=== PATIENT | male | born 1950 | race Caucasian/White ===

== ENCOUNTER 2021-09-17 19:35 | Inpatient (IN) | payer MEDICARE, SELFPAY ==
--- NOTE | ~2021-09-17 | CT_ITS ---
EXAMINATION: CTA chest PE protocol DATE: 09/18/2021 10:18 INDICATION: Shortness of breath. TECHNIQUE: Computed tomography angiography (CTA) of the chest was performed with 100 mL Omnipaque-350 intravenous contrast timed to evaluate the pulmonary arteries. Coronal maximum intensity projection 3D-reconstructions were created by the technologist. Automated exposure control and iterative reconst ruction technique were employed. The dose-length product was 1205.02 mGy-cm. COMPARISON: None. FINDINGS: There is severe emphysema. There is mild atelectasis bilaterally. No pleural effusion. The heart size is normal. There are coronary artery calcifications. There are calcifications of the aorti c valve. No pericardial effusion. There is no pulmonary embolus. Partially visualized is a 10.[address] in left kidney. There are chronic radiopaque foreign bodies in the left posterior body wall. There are bridging endplate osteophytes at multiple levels in the spine, consistent with diffuse idiopathi c skeletal hyperostosis (DISH). There is severe cervical spondylosis and mild thoracic spondylosis. T here is a subcutaneous electronic implant in left anterior chest. IMPRESSION: 1. No pulmonary embolus. Sensitivity is moderately decreased by motion artifact. 2. Severe emphysema. Reviewed, dictated and finalized at location A. CLERK IMPRESSION: 1. No pulmonary embolus. Sensitivity is moderately decreased by motion artifact . 2. Severe emphysema.
--- NOTE | ~2021-09-17 | XR_ITS ---
EXAMINATION: XR abdomen/kub 1V EXAM DATE: 09/24/2021 09:31 INDICATION: Left upper quadrant pain. TECHNIQUE: Frontal projection of the upper abdomen, frontal projection lower abdomen/pelvis for inter pretation. There is no prior study for comparison. FINDINGS: Nonobstructive upper abdominal bowel gas pattern, only small amount of colonic gas present . [place] overlying the chest and abdomen. There are bony degenerative changes. IMPRESSION: Nonobstructive bowel gas pattern. Reviewed, dictated and finalized at location A. ITY BILL COLLECTION CLERK
--- NOTE | ~2021-09-17 | XR_ITS ---
XR chest 1V portable DATE: 09/18/2021 10:20 INDICATION: Shortness of breath TECHNIQUE: Portable AP views COMPARISON: 09/17/2021 AP chest FINDINGS: There is borderline or increased heart size. Is aortic calcification and mild unfolding. Mild atelectasis is suggested in the lower lungs. No pleural effusion or pneumothorax is noted. recreation therapy aides teacher device overlies the left chest. IMPRESSION: Mild atelectasis in the lower lung zones Reviewed, dictated and finalized at location A. AND PENCILS DIPPER
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
--- NOTE | ~2021-09-17 | CT_ITS ---
EXAMINATION: CT knee RT wo con DATE: 09/17/2021 22:01 INDICATION: Right knee pain and proximal tibial fracture post fall TECHNIQUE: High resolution computed tomography (CT) of the right knee was performed without intraveno us contrast. Additional sagittal and coronal reconstructions were performed. Automated exposure contr ol and iterative reconstruction technique were employed. The dose-length product was 420.83 mGy-cm. COMPARISON: Radiograph dated 09/17/2021 FINDINGS: Again seen is a comminuted fracture along the anterior aspect of the proximal tibia. Somewhat greater degree of comminution then anticipated based upon the plain radiographs. There is 3 mm anterior disp lacement of a fragment comprising a portion of the lateral aspect of the anterior tibial tuberosity. Negligible displacement of the remaining fragments. The fracture line does extend proximally to the a nterior margin of the lateral tibial plateau into the anterior aspect of the tibial footplate of the anterior cruciate ligament. There is however no evident involvement of the articular cortex. No other fractures identified. Thin peripheral serpiginous sclerotic margins to a chronic bone infarct in the distal diaphyseal and metaphyseal region of the right femur. Small right knee joint effusion without evident layering fat-fluid or hematocrit levels. Soft tissue swelling with subcutaneous edema anteri or to the patellar tendon and proximal tibia. IMPRESSION: 1. Nondisplaced minimally displaced comminuted fractures of the anterior aspect of the proximal tibia extending to the margin of the not involving the articular surface of the lateral tibial plateau. Reviewed, dictated and finalized at location A. IDENT AND CEO IMPRESSION: 1. Nondisplaced minimally displaced comminuted fractures of the anterior aspect of the proximal tibia extending to the margin of the not involving the articul ar surface of the lateral tibial plateau.
--- NOTE | ~2021-09-17 | XR_ITS ---
EXAMINATION: XR tibia fibula RT 2V DATE: 09/17/2021 20:15 INDICATION: Proximal anterior right lower leg pain post fall TECHNIQUE: AP and lateral views of the right lower leg were obtained on overlapping proximal and dist al images. COMPARISON: None. FINDINGS: Mildly comminuted fracture along the anterior aspect of the proximal right tibia with 2-3 mm wide chelly ency with Y-shaped configuration on the frontal projection and with 3 mm anterior displacement of a s mall fragment in the region of the anterior tibial tuberosity on the lateral projection. There is sug gestion of possible intra-articular extension with linear lucency extending to project over the media l intercondylar eminence on the frontal projection. There is mild soft tissue swelling anterior to th e proximal tibia and patellar tendon. Alignment is otherwise normal. No other fractures identified. J oint space at the right knee, ankle and visualized mid and hindfoot appear normal on nonweightbearing imaging. Small Achilles calcaneal spur. Small right knee joint effusion. IMPRESSION: 1. Minimally displaced, mildly comminuted at the anterior aspect of the proximal right tibia with pos sible intra-articular extension. Reviewed, dictated and finalized at location A. Y DUTY CUSTODIAN IMPRESSION: 1. Minimally displaced, mildly comminuted at the anterior aspect of the proxima l right tibia with possible intra-articular extension.
--- NOTE | ~2021-09-17 | XR_ITS ---
EXAMINATION: XR humerus RT, XR forearm RT 2V DATE: 09/23/2021 14:23 INDICATION: Right arm pain with limited range of motion post fall TECHNIQUE: 1. Overlapping proximal and distal AP and lateral views of the right humerus were obtained. 2. AP and lateral views of the right forearm were obtained. COMPARISON: None FINDINGS: Normal alignment at the right shoulder and elbow. There is widening of the scapholunate interval at t he right wrist with increased scapholunate angle consistent with scapholunate ligament tear and secon robbin dorsal intercalated segment instability (DISI). Atypical pattern of severe joint space narrowing at the radioscaphoid articulation which can be seen with scapholunate advanced collapse (SLAC) wrist suggesting the scapholunate ligament tear is chronic. No fractures. Additional polyarticular osteoar thritis, moderate severity at the right acromioclavicular joint and mild at the glenohumeral, elbow a nd first carpal metacarpal joints. Small loose osteochondral body at the olecranon fossa. No right el bow joint effusion. Tiny olecranon enthesophyte. Peripheral IV at the dorsal aspect of the distal for earm. IMPRESSION: 1. No fracture at the right upper arm or forearm. 2. 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 Reviewed, dictated and finalized at location A. OR SCRUM MASTER IMPRESSION: 1. No fracture at the right upper arm or forearm. 2. 

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
[2021-09-17 19:43] VITALS: BP 102/63; PULSE 119; RESP 18; TEMP 36.3; O2SAT 97
--- NOTE | 2021-09-17 22:00 | ED.LOWEXIN ---
HPI - Extremity Injury (Lower) General Chief Complaint: Extremity Injury, Lower Stated Complaint: Right leg Fx, cant ambulate Time Seen by Provider: 09/17/21 21:10 Source: patient Mode of arrival: wheelchair Limitations: no limitations History of Present Illness HPI Narrative: Patient is a 70-year-old male complaining of right knee pain, 8 out of 10, dull, aching, worse with palpation and movement after falling 3 days ago. Patient states that he was seen at [facility], was told to follow-up with Ortho, but when he called Ortho yesterday he was told that they did not accept his insurance, not part of the network . Son states that patient lives alone and he is not able to stand up and ambulate, unable to care for himself due to the injury. Related Data Allergies Allergy/AdvReac Type Severity Reaction Status Date / Time No Known Allergies Allergy Unverified 03/23/15 14:20 Review of Systems Review of Systems: All systems reviewed & are unremarkable except as noted in HPI and below Constitutional: Constitutional: Denies body ache(s), Denies chills, Denies excessive sweating, Denies fatigue, Denies fever(s), Denies headache(s), Denies lethargy, Denies malaise, Denies weakness and Denies weight loss Eyes: Eyes: Denies blurry vision, Denies change in vision and Denies loss of vision ENT: Denies dizziness, Denies ear discharge, Denies headache(s), Denies lip swelling, Denies epistaxis, Denies nasal congestion, Denies neck pain, Denies throat swelling and Denies tongue swelling Cardiovascular: Cardiovascular: Denies chest pain, Denies chest pain at rest, Denies chest pain with activity, Denies diaphoresis, Denies rapid heart rate, Denies edema, Denies irregular heart rhythm, Denies lightheadedness, Denies palpitations, Denies dyspnea and Denies dyspnea on exertion Respiratory: Respiratory: Denies chest congestion, Denies cough, Denies hemoptysis, Denies dyspnea and Denies dyspnea on exertion Gastrointestinal: Gastrointestinal: Denies abdominal pain, Denies melena, Denies hematochezia, Denies diarrhea, Denies nausea, Denies vomiting and Denies hematemesis Musculoskeletal: Musculoskeletal: Denies neck pain and Denies numbness Neurologic: Denies Abnormal speech present, Denies abnormal gait, Denies confusion, Denies dizziness, Denies headache(s), Denies focal weakness, Denies loss of vision, Denies numbness, Denies Other visual disturbances, Denies Sensory deficit (Neuro) and Denies weakness Psychiatric: Psychiatric: Denies confusion, Denies depression, Denies auditory hallucinations, Denies homicidal ideation and Denies suicidal ideation Endocrine: Endocrine: Denies cold intolerance, Denies excessive sweating, Denies fatigue, Denies heat intolerance and Denies palpitations Hematologic/Lymphatic: Hematologic/Lymphatic: Denies easy bleeding and Denies easy bruising Allergic/Immunologic: Allergic/Immunologic: Denies lip swelling, Denies throat swelling and Denies tongue swelling PMFSH Comments Past medical history: COPD, hypertension Family history: Hypertension Social history: Former smoker, no EtOH use, lives at home alone Exam Const: General: no acute distress and alert Nutritional Appearance: obese Orientation/consciousness: patient oriented x3 Limitations: no limitations HENMT: Head: normal to inspection, normocephalic and atraumatic Ears: hearing grossly normal bilaterally, TM normal on the right and TM normal on the left General nose exam: Normal external nose present, Normal nares present and No nasal discharge present Face and sinus: normal facial exam Mouth: Yes Normal oral and palatal mucosa present, Yes lip normal, Yes tongue normal and Yes oropharynx normal Throat: posterior oropharynx normal, tonsils normal and uvula midline Eyes: General: appearance normal, both eyes and all related structures Pupils: Equal, round and reactive pupils present EOM: EOMs intact bilaterally Neck: Neck: normal visual inspection, full R
[2021-09-17 22:17] LABS: Basophils Percent Auto 0.3 % (0.2-1.2); Eosinophils Absolute Auto 0.1 K/mm3 (0-0.3); Eosinophils Percent Auto 0.5 % (0-4.4); Hematocrit 40.5 % (42.0-52.0); Immature Granulocyte Absolute 0.06 K/mm3 (0.00-0.031); Immature Granulocyte Percent A 0.5 % (0-0.5); Lymphocytes Absolute Auto 0.95 K/mm3 (0.9-3.2); Lymphocytes Percent Auto 7.2 % (18.3-44.2); Mean Corpuscular HGB Conc 32.1 g/dl (32-36); Mean Corpuscular Hemoglobin 30.1 pg (26-34); Mean Corpuscular Volume 93.8 fl (80-100); Mean Platelet Volume 9.2 fl (7.4-10.4); Monocytes Percent Auto 7.8 % (2.6-8.5); Neutrophils Absolute Auto 11.1 K/mm3 (1.3-6.7); Neutrophils Percent Auto 83.7 % (45.5-73.1); Platelet Count Result 292 k/mm3 (150-375); Red Blood Count 4.32 M/mm3 (4.6-6.20); Red Cell Distribution Width 13.2 % (11.5-14.5); White Blood Count 13.3 K/mm3 (4.5-10.0)
[2021-09-17 22:27] LABS: Partial Thromboplastin Time 30.2 SECONDS (22.3-36.8)
[2021-09-17 22:29] LABS: Anion Gap 8 mmol/L (8-16); Blood Urea Nitrogen 13 mg/dL (9-20); Calcium 9.1 mg/dL (8.4-10.2); Carbon Dioxide 33 mmol/L (22-30); Chloride 98 mmol/L (98-107); Estimated CRCL calculation 124 ml/min; Estimated Glomerular Filt Rate > 60; Glucose 126 mg/dL (65-110); Potassium 4.2 mmol/L (3.4-5.0); Sodium 139 mmol/L (137-145)
[2021-09-17 22:30] LABS: INR 0.9; Prothrombin Time 12.3 Seconds (11.1-14.7)
--- NOTE | 2021-09-17 23:25 | ECG_ITS ---
Measurements Intervals [place] Rate: 121 P: -74 [place]: 156 QRS: -72 QRSD: 118 T: 67 QT: 310 QTc: 441 Interpretive Statements SINUS OR ECTOPICA ATRIAL TACHYCARDIA WITH FIRST DEGREE AV BLOCK INCOMPLETE RIGHT BUNDLE BRANCH BLOCK LEFT ANTERIOR FASCICULAR BLOCK BORDERLINE ST-T WAVE ABNORMALITY- HIGH LATERAL LEADS BASELINE ARTIFACT- I, II, AVR, AVL, AVF, V1-V6 ABNORMAL ECG Electronically Signed On 09-18-2021 6:22:34 COMMUNITY SERVICE ORGANIZATION DIRECTOR by Jae Harp D.O.
[2021-09-18] VITALS (21 sets, daily range): BP systolic 132–151; BP diastolic 77–102; PULSE 71–112; RESP 17–22; TEMP 36.3–36.9; O2SAT 86–98; BMI 40.9
[2021-09-18] MEDS: HYDROcodone/acetaminophen (*CRX) 7.5-325 MG TABLET 1 TAB PO (00:07)
[2021-09-18] MEDS: LACTATED RINGERS 1,000 ML 125 ML IV CONT (02:00)
--- NOTE | 2021-09-18 03:39 | PC.NURSE ---
This patient, Bjorn Malave, was admitted to [facility] Surg Room 300-01. Patient/family oriented to hospital policies and general routines including ID bracelet, bed and alarms, visiting hours, pain management, procedures, bathroom and other care routines, personal items, smoking policy, room service/diet, and visiting hours. Information on how to activate the Rapid Response Team has been discussed. Patient/Family are encouraged to report perceived risks to care and to ask questions if they do not understand what they are told or what they should do.
--- NOTE | 2021-09-18 07:12 | PM.CNOR ---
Assessment and Plan Additional Plan Patient has a comminuted but minimally displaced fracture of the tibial tubercle right proximal tibia without extension into the weight-bearing articular surfaces of the knee. Since it is nondisplaced or minimally displaced the extensor mechanism is intact and this should heal without surgical intervention but will require nonweightbearing for a minimum of 6 weeks. He is at risk for DVT and Eliquis will be started. He may eat as surgery is not planned for this gentleman. History of Present Illness HPI Consult date: 09/18/21 Chief complaint: Tibial Plateau Fracture, COPD [facility] Social History Social History Smoking packs per day: 3 Smoking cigarettes per day: 60.0 Years smoked: 20 Smoking pack-years: 60.00 Smoking status: Former smoker Tobacco type: cigarettes Second hand tobacco smoke exposure: Yes Alcohol intake: current Drinks per week: 2 Substance use: never Substance use type: does not use Spiritual care concerns: No Meds Home Medications and Allergies Home Medications Medication Instructions Recorded Confirmed Type albuterol sulfate 2 puff INHALATION Q6-8H PRN 09/18/21 09/18/21 History amlodipine 10 mg PO DAILY 09/18/21 09/18/21 History aspirin 81 mg PO DAILY 09/18/21 09/18/21 History atorvastatin 80 mg PO HS 09/18/21 09/18/21 History tzrxmwiotpl-yftfpxbca-mkfelony 100 inh INHALATION Q6-8H 09/18/21 09/18/21 History [Trelegy Ellipta] furosemide 40 mg PO DAILY 09/18/21 09/18/21 History hydrocodone-acetaminophen 5 - 325 tablet PO Q6-8H 09/18/21 09/18/21 History ipratropium-albuterol 3 ml INHALATION Q6H PRN 09/18/21 09/18/21 History levothyroxine 150 mcg PO DAILY 09/18/21 09/18/21 History meloxicam 15 mg PO DAILY 09/18/21 09/18/21 History montelukast 10 mg PO HS 09/18/21 09/18/21 History nitroglycerin 0.4 mg SUBLINGUAL PRN PRN MDD 3 09/18/21 09/18/21 History potassium chloride 20 meq PO DAILY 09/18/21 09/18/21 History sertraline 50 mg PO DAILY 09/18/21 09/18/21 History tamsulosin 0.4 mg PO DAILY 09/18/21 09/18/21 History Allergies Allergy/AdvReac Type Severity Reaction Status Date / Time No Known Allergies Allergy Verified 09/18/21 00:03 Vital Signs Vital Signs - 24 hr 09/17/21 19:43 09/18/21 00:10 09/18/21 01:15 Temperature 36.3 C L 36.9 C Pulse Rate 119 H 112 H 111 H Respiratory Rate 18 18 22 H Blood Pressure 102/63 135/80 132/102 H Pulse Oximetry 97 94 97 09/18/21 03:48 09/18/21 06:00 Temperature 36.3 C L Pulse Rate 98 Respiratory Rate 20 Blood Pressure 151/78 H Pulse Oximetry 97 98 Results Labs Result Diagrams: 09/17/21 22:11 09/17/21 22:11 Labs: Abnormal lab results 09/17/21 09/17/21 Range/Units 22:11 22:11 WBC 13.3 H (4.5-10.0) K/mm3 RBC 4.32 L (4.6-6.20) M/mm3 Hgb 13.0 L (14.0-18.0) g/dL Hct 40.5 L (42.0-52.0) % Neut % (Auto) 83.7 H (45.5-73.1) % Lymph % (Auto) 7.2 L (18.3-44.2) % [place] # (Auto) 1.0 H (0.1-0.6) K/mm3 Abs Immat Gran (auto) 0.06 H (0.00-0.031) K/mm3 Absolute Neuts (auto) 11.1 H (1.3-6.7) K/mm3 Carbon Dioxide 33 H (22-30) mmol/L Glucose 126 H (65-110) mg/dL H & H 09/17/21 Range/Units 22:11 Hgb 13.0 L (14.0-18.0) g/dL Hct 40.5 L (42.0-52.0) % Coagulation 09/17/21 Range/Units 22:11 INR 0.9 All other labs normal.
--- NOTE | 2021-09-18 08:20 | PM.IMHP ---
H&P: HPI History of Present Illness Date/Time: 09/18/21819 Chief Complaint: Leg fracture with limited movement Narrative: Patient is a 70 year old male with a past medical history of COPD, HTN, HLD, and BPH that presented to the ED fro evaluation of right leg pain and immobility. Patient explained that he fell 3 days ago. He was seen at [facility] which x-ray showed that he had a fracture and was told to follow up with orthopedics as an outpatient. When he tried to see an orthopedic provider, he was told that his insurance was not accepted, and they were unable to see him. He presented yesterday due to pain and inability to be mobile. Patient lives by himself, and concern comes in that the patient would not be able to care for himself. This morning I went to see the patient the patient was diaphoretic extremely short of breath with wheezes. Patient denied chest pain. Patient stated that he would drink some juice and get very short of breath. His work of breathing was elevated and he was diaphoretic. Patient stated that the diaphoresis is normal for him especially when he moves around. He also becomes very short of breath and usually takes a nitro to relieve his shortness of breath. Patient did state that he noticed increasing wheezes and has been more short of breath lately than normal. He denies sputum changes at that time. However when I re-evaluated the patient in the afternoon patient stated that he is having more sputum production and that is changing from yellow to green. Patient has been more weak and fatigued over the last couple days. He also states that he has had no urinary dysfunction. He denies nausea, vomiting, fevers, chills, falls, syncope, chest pain. He did state that he is hungry and would like to eat. Upon examination this morning, patient was noted to be in respiratory failure with hypoxia and hypercapnia. Patient was placed on bipap and transferred to the IMU. Review of Systems Review of Systems: All systems reviewed & are unremarkable except as noted in HPI and below PMFSH Past Medical History Medical History (Updated 09/18/21 @ 15:58 by ZIYAD Belcher) BPH (benign prostatic hyperplasia) CAD (coronary artery disease) CHF (congestive heart failure) COPD (chronic obstructive pulmonary disease) Depression Hyperlipidemia Hypertension Hypothyroidism Surgical History Surgical History (Updated 09/18/21 @ 15:50 by ZIYAD Belcher) H/O colonoscopy with polypectomy Stented coronary artery Family History Family History (Updated 09/18/21 @ 15:50 by ZIYAD Belcher) Mother Heart disease Hypertension Father Hypertension Heart disease Social History Social History (Updated 09/18/21 @ 15:52 by ZIYAD Belcher) Social History: [place] [facility]. Patient has no pets and his about 8 years ago. Patient would like to be a full code and his surrogate be either Vinay or Katrin. Patient had 4 kids 3boys and 1 girl. 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
[2021-09-18] MEDS: ALBUTEROL SULFATE NEB 2.5 MG/0.5 ML INH INHALATION ×3 (08:30→20:50)
[2021-09-18] MEDS: IPRATROPIUM BR 0.02% INH SOLN 0.5 MG/2.5 ML VIAL INHALATION ×3 (08:30→20:50)
[2021-09-18] MEDS: NITROGLYCERIN SL 0.4 MG TABLET SUBLINGUAL (08:33)
--- NOTE | 2021-09-18 08:37 | ECG_ITS ---
Measurements Intervals [place] Rate: 106 P: [place]: 0 QRS: -63 QRSD: 117 T: 76 QT: 339 QTc: 452 Interpretive Statements SINUS TACHYCARDIA FREQUENT VENTRICULAR PREMATURE COMPLEXES LEFT AXIS DEVIATION INCOMPLETE RIGHT BUNDLE BRANCH BLOCK BORDERLINE R WAVE PROGRESSION, ANTERIOR LEADS BORDERLINE ST-T WAVE ABNORMALITY- HIGH LATERAL LEADS BASELINE WANDER- I, II, III, AVR, AVL, AVF, V3-V6 ABNORMAL ECG Electronically Signed On 09-18-2021 9:16:58 HUMANITIES INSTRUCTOR by Jae Harp D.O.
[2021-09-18 08:51] LABS: INR 0.9; Prothrombin Time 12.4 Seconds (11.1-14.7)
[2021-09-18 08:52] LABS: Partial Thromboplastin Time 29.9 SECONDS (22.3-36.8)
[2021-09-18 08:55] LABS: D Dimer 2.07 ug/mL (<0.48); Lactic Acid Reflex 1.2 mmol/L (0.7-2.1)
[2021-09-18 09:07] LABS: Troponin I < 0.012 ng/mL (0.000-0.034)
[2021-09-18 09:10] LABS: Alveolar/Arterial O2 Gradient 95.9 mmHg; Base Excess ABG 9.4 mEq/l (+/-2.0); Fractional Inspired Oxygen 36 %; Oxygen Content ABG 16.3 %vol (16.0-22.0); Oxygen Saturation ABG 89.4 % (95.0-100.0); Oxyhemoglobin 91.4 % THb (90.0-100.0); PO2 ABG 65.2 mmHg (80.0-100.0); PO2 FiO2 Ratio Arterial Blood 1.81 %; Total Hemoglobin 12.7 g/dL (12.0-18.0)
[2021-09-18 09:12] LABS: pH ABG 7.293 (7.350-7.450)
[2021-09-18 09:13] LABS: Device NASAL CANNULA; Modified Allen's Test Pass; PCO2 ABG 82.4 mmHg (35.0-45.0); Site Drawn LEFT RADIAL
[2021-09-18] MEDS: MELOXICAM 7.5 MG TABLET 15 MG PO (10:25)
[2021-09-18] MEDS: TAMSULOSIN HCL 0.4 MG CAPSULE PO (10:25)
[2021-09-18] MEDS: SERTRALINE HCL 50 MG TABLET PO (10:26)
[2021-09-18] MEDS: LEVOTHYROXINE SODIUM 150 MCG TABLET PO (10:26)
[2021-09-18] MEDS: FUROSEMIDE 40 MG TABLET PO (10:26)
[2021-09-18] MEDS: amLODIPine BESYLATE 5 MG TABLET 10 MG PO (10:26)
[2021-09-18] MEDS: ASPIRIN 81 MG CHEWABLE TABLET PO (10:26)
--- NOTE | 2021-09-18 13:10 | PC.NURSE ---
This patient, Bjorn Malave, was transferred to IMU [id number] on 09/18/21 at 1310. Personal belongings sent with patient. Report given to Roro ROMERO. Appropriate documentation sent with patient.
--- NOTE | 2021-09-18 13:45 | PC.NURSE ---
This patient, Bjorn Malave, was received from [ [id number]] on 09/18/21 at 1310. Patient/family oriented to unit policies and routines Report received from NICK Brandon.
[2021-09-18 14:10] LABS: Alveolar/Arterial O2 Gradient 162.6 mmHg; Base Excess ABG 6.5 mEq/l (+/-2.0); Carboxyhemoglobin 0.1 % THb (0-2.0); Fractional Inspired Oxygen 44 %; HCO3 ABG 34.4 mEq/l (22.0-26.0); Methemoglobin ABG 0.4 %THb (0-1.5); Oxygen Content ABG 16.3 %vol (16.0-22.0); Oxygen Saturation ABG 93.4 % (95.0-100.0); Oxyhemoglobin 93.9 % THb (90.0-100.0); PO2 ABG 74.4 mmHg (80.0-100.0); PO2 FiO2 Ratio Arterial Blood 1.69 %; Reduced Hemoglobin 5.6 %THb (0-5.0); Total Hemoglobin 12.3 g/dL (12.0-18.0); pH ABG 7.327 (7.350-7.450)
[2021-09-18 14:13] LABS: PCO2 ABG 67.3 mmHg (35.0-45.0)
[2021-09-18 14:14] LABS: Device HIGH FLOW NASAL CANN; Modified Allen's Test Pass; Site Drawn LEFT RADIAL
[2021-09-18 14:34] LABS: Add Urine Microscopic? NO; Appearance Urine Clear (Clear); Bilirubin Urine Negative (Negative); Blood Urine Negative (Negative); Color Urine Yellow (Yellow); Glucose Urine UA Negative (Negative); Ketones Urine Negative (Negative); Leukocyte Esterase Ur Negative LEU/UL (Negative); Nitrate Urine Negative (Negative); Protein Urine Negative (Negative); Urobilinogen Urine Negative mg/dL (<2.0)
[2021-09-18 14:36] LABS: Specific Grav Ur 1.045 (1.001-1.035)
[2021-09-18] MEDS: methylPREDNISolone SOD SUCC 125 MG VIAL 60 MG IV PUSH ×2 (18:01→21:05)
--- NOTE | 2021-09-18 19:25 | PM.CNOR ---
Assessment and Plan Additional Plan Patient is a 70-year-old gentleman that was admitted last evening with a comminuted right tibial tubercle fracture. This happened from a fall directly onto the front of his right knee 5 days ago. He was initially seen in outside hospital and attempt to treat him on outpatient basis was made but he came into the ER having too much difficulty living at home without assistance. He has extreme obesity his BMI is 41 and he is oxygen dependent at home. His a history of coronary artery disease and CHF he has a very difficult time getting up from a chair with just his left leg strength alone. Earlier today he was short of breath and hypoxic and hypercapnic had a CT angiogram of the chest which fortunately showed no pulmonary embolism. I did start him on Eliquis 2.5 mg twice daily this morning I would recommend he have a 6 week course of this. He does have some infiltrates on his chest x-ray and is being evaluated for pneumonia as well. He has severe emphysema COPD. On exam today he has a fair amount of bruising over the anteromedial aspect of the lower leg proximal aspect of the calf anteromedially. The skin is otherwise intact. He has no obvious edema in his foot or ankle he moves his ankle up and down without discomfort he has full extension of his knee without discomfort. He has severe tenderness over the tibial tubercle. He has a knee immobilizer the could be a little bit longer for him. I will have Applied Biology Professor fit him with a long-leg hinged knee brace that can be locked in extension which will give him more support. I could not feel a dorsalis pedis pulse but he had normal color and warmth in the foot. Rotation legged not cause discomfort. All of his pain is in the tibial tubercle area. He is being evaluated for placement at [facility]. Will check a 25 hydroxy vitamin-D level and supplement this if it is low. Impression comminuted fracture tibial tubercle right leg without evidence of displacement and therefore he should not have disruption of the extensor mechanism and his function should be normal again once he has complete healing will take about 8 weeks. I explained him that if he is noncompliant and uses quadriceps either to do a straight leg raise or to push up with his leg to get up from a sitting position or climb a step he may pull off the tibial tubercle which would result in extensor mechanism disruption and incompetence which would necessitate surgical reattachment of the tubercle to the tibia. History of Present Illness HPI Consult date: 09/18/21 Chief complaint: Tibial Plateau Fracture, COPD [facility] Past Medical History Medical History (Updated 09/18/21 @ 15:58 by ZIYAD Belcher) BPH (benign prostatic hyperplasia) CAD (coronary artery disease) CHF (congestive heart failure) COPD (chronic obstructive pulmonary disease) Depression Hyperlipidemia Hypertension Hypothyroidism Surgical History Surgical History (Updated 09/18/21 @ 15:50 by ZIYAD Belcher) H/O colonoscopy with polypectomy Stented coronary artery Family History Family History (Updated 09/18/21 @ 15:50 by ZIYAD Belcher) Mother Heart disease Hypertension Father Hypertension Heart disease Social History Social History (Updated 09/18/21 @ 15:52 by ZIYAD Belcher) Social History: Patient [place] [facility]. Patient has no pets and his about 8 years ago. Patient would like to be a full code and his surrogate be either Vinay or Katrin. Patient had 4 kids 3boys and 1 girl. Smoking packs per day: 3 Smoking cigarettes per day: 60.0 Years smoked: 20 Smoking pack-years: 60.00 Smoking status: Former smoker Tobacco type: cigarettes Second hand tobacco smoke exposure: Yes Alcohol intake: former Drinks per week: 2 Substance use: never Substance use type: does not use Living arrangements: alone Occupation/Educatio
[2021-09-18] MEDS: ATORVASTATIN 40 MG TABLET 80 MG PO (20:29)
[2021-09-18] MEDS: MONTELUKAST SODIUM 10 MG TABLET PO (20:29)
[2021-09-18] MEDS: FLUTICASONE/UMECLIDIN/VILANTER 100-62.5-25 MCG ELLIPTA 1 PUFF INHALATION (21:02)
[2021-09-18 21:08] LABS: Vitamin D 25 Hydroxy < 12.8 ng/mL
[2021-09-19] VITALS (35 sets, daily range): BP systolic 132–159; BP diastolic 73–91; PULSE 72–116; RESP 18–24; TEMP 36.3–36.9; O2SAT 91–98
--- NOTE | 2021-09-19 | ECHO_ITS ---
Patient Info Name: Bjorn Malave Age: 70 years : 1950 Gender: Male Ht: 71 in Wt: 293 lbs BSA: 2.64 m2 HR: 68 bpm BP: 148 / 91 mmHg Heart Rhythm: Sinus Rhythm Technical Quality: Fair Exam Date: 09/19/2021 1:14 PM Exam Location: [facility] Pulmonary Exam Room: [facility] [place] Patient Status: Inpatient Admit Date: 09/18/2021 Staff Ordering Physician: Filemon Amaral Medical Radiation Therapist: Sally Miller RDCS Attending Provider: Mckenzie Cuevas DO Referring Physician: Munir TURNER; Exam Type: CA echo doppler color flow Study Info Indications - shortness of breath Complete two-dimensional, color flow and Doppler transthoracic echocardiogram is performed. Summary 1. Complete two-dimensional, color flow and Doppler transthoracic echocardiogram is performed. 2. Left ventricular chamber dimension is normal. 3. Left ventricular systolic function is normal, estimated at 65-70%. 4. There is mildly increased left ventricular wall thickness. 5. The left ventricular diastolic function is grade I diastolic dysfunction. 6. Left atrial chamber dimension is mildly enlarged. 7. Right atrial chamber dimension is mildly enlarged. 8. There is mild aortic valve calcification. 9. There is moderate aortic valve sclerosis. 10. There is mild tricuspid valve regurgitation. 11. Mild pulmonary hypertension, estimated pulmonary arterial systolic pressure is 41 mmHg. Left Ventricle Left ventricular chamber dimension is normal. Left ventricular systolic function is normal, estimated at 65-70%. There is mildly increased left ventricular wall thickness. The left ventricular diastolic function is grade I diastolic dysfunction. Right Ventricle Right ventricular chamber dimension is normal. Right ventricular systolic function is normal. Left Atria Left atrial chamber dimension is mildly enlarged. Right Atria Right atrial chamber dimension is mildly enlarged. Atrial Septum Intact interatrial septum visualized by color flow imaging. Aortic Valve The aortic valve is trileaflet. There is moderate aortic valve sclerosis. There is trace aortic valve regurgitation. There is mild aortic valve calcification. Pulmonic Valve The pulmonic valve is normal. There is no pulmonic valve stenosis. There is trace pulmonic regurgitation. Mitral Valve The mitral valve has calcified annulus. There is no mitral valve stenosis. There is trace mitral valve regurgitation. Tricuspid Valve The tricuspid valve leaflets are normal. There is no significant tricuspid valve stenosis. There is mild tricuspid valve regurgitation. Mild pulmonary hypertension, estimated pulmonary arterial systolic pressure is 41 mmHg. Pericardium/Pleural The pericardium appears normal. There is no pericardial effusion. Inferior Vena Cava Normal inferior vena cava with >50% collapse upon inspiration consistent with normal right atrial pressure, 10 mmHg. Aorta The aortic root size at the sinus of Valsalva is normal. There is mild aortic atherosclerosis. Left Ventricular Outflow Tract Name Value Normal LVOT 2D LVOT Diameter 2.2 cm LVOT Doppler
[2021-09-19] MEDS: IPRATROPIUM BR 0.02% INH SOLN 0.5 MG/2.5 ML VIAL INHALATION ×6 (00:08→20:00)
[2021-09-19] MEDS: ALBUTEROL SULFATE NEB 2.5 MG/0.5 ML INH INHALATION ×6 (00:08→20:00)
[2021-09-19 04:43] LABS: Alveolar/Arterial O2 Gradient 92.6 mmHg; Base Excess ABG 9.9 mEq/l (+/-2.0); Fractional Inspired Oxygen 35 %; HCO3 ABG 37.4 mEq/l (22.0-26.0); Oxygen Content ABG 17.3 %vol (16.0-22.0); Oxygen Saturation ABG 95.5 % (95.0-100.0); Oxyhemoglobin 95.3 % THb (90.0-100.0); PO2 FiO2 Ratio Arterial Blood 2.34 %; Total Hemoglobin 12.9 g/dL (12.0-18.0); pH ABG 7.381 (7.350-7.450)
[2021-09-19 04:46] LABS: Device NON-INVASIVE VENT; Modified Allen's Test Pass; PCO2 ABG 64.5 mmHg (35.0-45.0); Site Drawn RIGHT RADIAL
[2021-09-19 04:47] LABS: Non-Invasive Expiratory Pressure 7 CMH2O; Non-Invasive Vent Rate 16 /MIN
[2021-09-19 04:55] LABS: Basophils Percent Auto 0.3 % (0.2-1.2); Hematocrit 36.6 % (42.0-52.0); Hemoglobin 12.1 g/dL (14.0-18.0); Immature Granulocyte Absolute 0.04 K/mm3 (0.00-0.031); Immature Granulocyte Percent A 0.6 % (0-0.5); Lymphocytes Absolute Auto 0.37 K/mm3 (0.9-3.2); Lymphocytes Percent Auto 5.3 % (18.3-44.2); Mean Corpuscular HGB Conc 33.1 g/dl (32-36); Mean Corpuscular Hemoglobin 30.1 pg (26-34); Mean Platelet Volume 9.1 fl (7.4-10.4); Monocytes Absolute Auto 0.1 K/mm3 (0.1-0.6); Monocytes Percent Auto 0.7 % (2.6-8.5); Neutrophils Absolute Auto 6.6 K/mm3 (1.3-6.7); Neutrophils Percent Auto 93.1 % (45.5-73.1); Platelet Count Result 322 k/mm3 (150-375); Red Blood Count 4.02 M/mm3 (4.6-6.20); Red Cell Distribution Width 12.9 % (11.5-14.5)
--- NOTE | 2021-09-19 05:00 | ECG_ITS ---
Measurements Intervals [place] Rate: 89 P: 88 MA: 209 QRS: -73 QRSD: 130 T: 81 QT: 383 QTc: 467 Interpretive Statements SINUS RHYTHM WITH FIRST DEGREE AV BLOCK LEFT ANTERIOR FASCICULAR BLOCK BASELINE ARTIFACT- I, AVL, V2 ABNORMAL ECG Electronically Signed On 09-19-2021 9:44:35 [employer] QU[employer] CONTROL QC by Jae Harp D.O.
[2021-09-19 05:15] LABS: Alanine Aminotransferase 13 U/L (4-50); Albumin Level 3.7 g/dL (3.5-5.1); Alkaline Phosphatase 72 U/L (38-126); Aspartate Amino Transferase 17 U/L (17-59); Bilirubin,Total 0.8 mg/dL (0.2-1.3); Blood Urea Nitrogen 18 mg/dL (9-20); Calcium 9.4 mg/dL (8.4-10.2); Carbon Dioxide > 40 mmol/L (22-30); Chloride 96 mmol/L (98-107); Estimated CRCL calculation 139 ml/min; Estimated Glomerular Filt Rate > 60; Glucose 156 mg/dL (65-110); Magnesium 2.1 mg/dL (1.6-2.3); NT Pro B Type Natriuretic Pept 176 pg/mL (5-100); Potassium 4.7 mmol/L (3.4-5.0); Sodium 140 mmol/L (137-145)
[2021-09-19] MEDS: LEVOTHYROXINE SODIUM 150 MCG TABLET PO (05:34)
[2021-09-19] MEDS: methylPREDNISolone SOD SUCC 125 MG VIAL 60 MG IV PUSH (05:36)
--- NOTE | 2021-09-19 07:52 | PM.PNORT ---
Progress Note: A&P Additional Plan Patient today is alert. He had a bout of shortness of breath yesterday was evaluated with CT to rule out pulmonary embolus which was negative. Immobilizer is on him. Pain overall is well controlled. They are working on senior care placement. Reviewing his orders patient was started on Lovenox this morning and Dr. Clancy would prefer for patient to be on Eliquis for DVT prophylaxis. We will restart this at this point. He will need to be on Eliquis for 6 weeks while the fracture is healing. We will continue to follow while he is here in the hospital. Subjective Subjective Date/Time Seen: 09/19/21 07:52 Objective Data Vital Signs Vital Signs: Vital Signs - 24 hr 09/18/21 08:00 09/18/21 08:20 09/18/21 08:35 Temperature Pulse Rate Respiratory Rate Blood Pressure Pulse Oximetry 86 L 90 92 09/18/21 08:55 09/18/21 09:10 09/18/21 12:00 Temperature Pulse Rate 98 99 71 Respiratory Rate 22 H 22 H Blood Pressure Pulse Oximetry 09/18/21 14:00 09/18/21 14:02 09/18/21 16:00 Temperature 36.4 C L Pulse Rate 100 86 Respiratory Rate 22 H 22 H Blood Pressure 146/77 H Pulse Oximetry 91 09/18/21 18:00 09/18/21 20:00 09/18/21 20:54 Temperature 36.4 C Pulse Rate 96 73 84 Respiratory Rate 20 20 Blood Pressure 139/81 Pulse Oximetry 93 09/18/21 20:55 09/18/21 21:03 09/18/21 22:00 Temperature Pulse Rate 82 93 Respiratory Rate 17 20 Blood Pressure Pulse Oximetry 95 09/18/21 23:15 09/18/21 23:55 09/19/21 00:00 Temperature 36.6 C Pulse Rate 91 90 Respiratory Rate 20 Blood Pressure 151/89 H Pulse Oximetry 94 94 09/19/21 00:07 09/19/21 00:08 09/19/21 00:14 Temperature Pulse Rate 86 84 Respiratory Rate 20 20 20 Blood Pressure Pulse Oximetry 93 09/19/21 01:53 09/19/21 03:30 09/19/21 04:00 Temperature 36.8 C Pulse Rate 77 72 75 Respiratory Rate 18 Blood Pressure 148/91 H Pulse Oximetry 96 96 09/19/21 04:38 09/19/21 04:48 09/19/21 06:00 Temperature Pulse Rate 84 82 87 Respiratory Rate 20 20 Blood Pressure Pulse Oximetry 09/19/21 07:07 09/19/21 07:41 Temperature 36.6 C 36.9 C Pulse Rate 90 80 Respiratory Rate 22 H 20 Blood Pressure 152/76 H 132/73 Pulse Oximetry 97 97 Intake/Output Intake/Output: Intake & Output 09/16/21 09/17/21 09/18/21 09/19/21 23:59 23:59 23:59 23:59 Intake Total 860 Output Total 1150 600 Balance -290 -600 Meds/Results Medications: Active Medications Generic Name Dose Route Start Last Admin Trade Name Freq PRN Reason Stop Dose Admin Acetaminophen 1,000 mg 09/18/21 07:54 Acetaminophen 500 Mg Tablet PO Q6H PRN Mild Pain (1-3) or Fever Hydrocodone Bitart/Acetaminophen 1 tab 09/18/21 07:54 Hydrocodone/Acetaminophen (*Crx) 5-325 Mg Tablet PO Q6H PRN Pain Rated 4-6 Albuterol 2.5 mg 09/18/21 20:00 09/19/21 04:27 Albuterol Sulfate Neb 2.5 Mg/0.5 Ml Inh INHALATION 2.5 mg Q4HRT WILLY Administration Amlodipine Besylate 10 mg 09/18/21 09:00 09/18/21 10:26 Amlodipine Besylate 5 Mg Tablet PO 10 mg DAILY WILLY Administration Aspirin 81 mg 09/18/21 08:00 09/18/21 10:26 Aspirin 81 Mg Chewable Tablet PO 81 mg DAILY@0800 WILLY Administration Atorvastatin Calcium 80 mg 09/18/21 21:00 09/18/21 20:29 Atorvastatin 40 Mg Tablet PO 80 mg HS WILLY Administration Enoxaparin Sodium 40 mg 09/19/21 09:00 Enoxaparin 40 Mg/0.4 Ml Syringe SUB-Q DAILY WILLY Fluticasone/Umeclidinium/Vilanterol 1 puff 09/18/21 08:00 09/18/21 21:02 Fluticasone/Umeclidin/Vilanter 100-62.5-25 Mcg Ellipta INHALATION 1 puff Q12HRT WILLY Administration Furosemide 40 mg 09/18/21 09:00 09/18/21 10:26 Furosemide 40 Mg Tablet PO 40 mg DAILY WILLY Administration Hydromorphone HCl 0.5 mg 09/17/21 23:25 Hydromorphone Hcl Inj (*Crx) 1 Mg/Ml Syr IV PUSH Q4H PRN Pain R
--- NOTE | 2021-09-19 08:40 | PM.IMPN ---
Progress Note: A&P Assessment and Plan (1) COPD exacerbation: Code(s): J44.1 - Chronic obstructive pulmonary disease with (acute) exacerbation Status: Acute Assessment and Plan: Increase wheezes and Shortness of breath Could be an acute exacerbation, wonder if this is PNA Chronic oxygen use of 3LNC Continue home Trelegy Ellipta, singular 10mg Neb treatments PRN for shortness of breath Steroids converted 40mg PO daily Azithromycin and ceftriaxone Chest CTA severe emphysema Pulmonary consult IS Sputum culture ordered (2) Acute on chronic respiratory failure with hypoxia and hypercapnia: Code(s): J96.21 - Acute and chronic respiratory failure with hypoxia; J96.22 - Acute and chronic respiratory failure with hypercapnia Status: Acute Assessment and Plan: Chronic O2 use of 3L at home ABG finding respiratory acidosis with PaCO2 82.4 and PaO2 65.2, pH 7.293 09/18/21 Bipap 14/8 rate of 20 Dimer elevated at 2.07 Chest CTA shows no PE Pulm consult thank you for your help decrease lovenox to 40mg (3) Closed fracture of tibial plateau: Qualifiers: Encounter type: initial encounter Laterality: right Qualified Code(s): S82.141A - Displaced bicondylar fracture of right tibia, initial encounter for closed fracture Code(s): S82.143A - Displaced bicondylar fracture of unspecified tibia, initial encounter for closed fracture Status: Acute Assessment and Plan: Knee CT: nondisplaced minimally displaced comminuted fractures of the anterior aspect of the proximal tibia Ortho consulted thank you for your help Knee immobilizer non weight bearing status for 6 weeks PT/OT Eliquis for DVT Dilaudid 0.5mg IV Q4hr PRN, add Tylenol and [place] Zofran for nausea vomiting (4) Pneumonia: Code(s): J18.9 - Pneumonia, unspecified organism Status: Acute Assessment and Plan: Chest xray: Opacities at the lateral left lower lung zone most likely atelectasis and/or prominent left paracardial fat pad with differential also including pneumonia or small left pleural effusion. WBC 7.0 Chronic home oxygen use Azithromycin and ceftriaxone started neb treatments IS Blood culture NGTD Sputum culture pending Legionella (5) Hypertension: Qualifiers: Hypertension type: unspecified Qualified Code(s): I10 - Essential (primary) hypertension Code(s): I10 - Essential (primary) hypertension Status: Acute Assessment and Plan: Current BP is 149/77 Could be high due to pain Continue home amlodipine 10mg PO daily Trend BP adjust medications as needed (6) Hypothyroidism: Code(s): E03.9 - Hypothyroidism, unspecified Status: Acute Assessment and Plan: Continue home levothyroxine Check TSH (7) Hyperlipidemia: Code(s): E78.5 - Hyperlipidemia, unspecified Status: Acute Assessment and Plan: Continue home atorvastatin (8) Constipation: Code(s): K59.00 - Constipation, unspecified Status: Acute Assessment and Plan: Distended Denies BM since last Thursday Miralax added Time Spent With Patient Time with patient: Greater than 35 minutes Subjective Date/time seen: 09/19/21839 Interval history: Date/Time: 09/18/21819 Chief Complaint: Leg fracture with limited movement Narrative: Patient is a 70 year old male with a past medical history of COPD, HTN, HLD, and BPH that presented to the ED fro evaluation of right leg pain and immobility. Patient explained that he fell 3 days ago. He was seen at [facility] which x-ray showed that he had a fracture and was told to follow up with orthopedics as an outpatient. When he tried to see an orthopedic provider, he was told that his insurance was not accepted, and they were unable to see him. He presented yesterday due to pain and inab
--- NOTE | 2021-09-19 08:40 | P.PNIM_ITS ---
Progress Note: A&P Assessment and Plan (1) COPD exacerbation: Code(s): J44.1 - Chronic obstructive pulmonary disease with (acute) exacerbation Status: Acute Assessment and Plan: * Increase wheezes and Shortness of breath * Could be an acute exacerbation, wonder if this is PNA * Chronic oxygen use of 3LNC * Continue home Trelegy Ellipta, singular 10mg * Neb treatments PRN for shortness of breath * Steroids converted 40mg PO daily * Azithromycin and ceftriaxone * Chest CTA severe emphysema * Pulmonary consult * IS * Sputum culture ordered (2) Acute on chronic respiratory failure with hypoxia and hypercapnia: Code(s): J96.21 - Acute and chronic respiratory failure with hypoxia; J96.22 - Acute and chronic respiratory failure with hypercapnia Status: Acute Assessment and Plan: * Chronic O2 use of 3L at home * ABG finding respiratory acidosis with PaCO2 82.4 and PaO2 65.2, pH 7.293 09/18/21 * Bipap / rate of 20 * Dimer elevated at 2.07 * Chest CTA shows no PE * Pulm consult thank you for your help * decrease lovenox to 40mg (3) Closed fracture of tibial plateau: Qualifiers: Encounter type: initial encounter Laterality: right Qualified Code(s): S82.141A - Displaced bicondylar fracture of right tibia, initial encounter for closed fracture Code(s): S82.143A - Displaced bicondylar fracture of unspecified tibia, initial encounter for closed fracture Status: Acute Assessment and Plan: * Knee CT: nondisplaced minimally displaced comminuted fractures of the anterior aspect of the proximal tibia * Ortho consulted thank you for your help * Knee immobilizer * non weight bearing status for 6 weeks * PT/OT * Eliquis for DVT * Dilaudid 0.5mg IV Q4hr PRN, add Tylenol and [place] * Zofran for nausea vomiting (4) Pneumonia: Code(s): J18.9 - Pneumonia, unspecified organism Status: Acute Assessment and Plan: * Chest xray: Opacities at the lateral left lower lung zone most likely atelectasis and/or prominent left paracardial fat pad with differential also including pneumonia or small left pleural effusion. * WBC 7.0 * Chronic home oxygen use * Azithromycin and ceftriaxone started * neb treatments * IS * Blood culture NGTD * Sputum culture pending * Legionella (5) Hypertension: Qualifiers: Hypertension type: unspecified Qualified Code(s): I10 - Essential (primary) hypertension Code(s): I10 - Essential (primary) hypertension Status: Acute Assessment and Plan: * Current BP is 149/77 * Could be high due to pain * Continue home amlodipine 10mg PO daily * Trend BP * adjust medications as needed (6) Hypothyroidism: Code(s): E03.9 - Hypothyroidism, unspecified Status: Acute Assessment and Plan: * Continue home levothyroxine * Check TSH (7) Hyperlipidemia: Code(s): E78.5 - Hyperlipidemia, unspecified Status: Acute Assessment and Plan: * Continue home atorvastatin (8) Constipation: Code(s): K59.00 - Constipation, unspecified Status: Acute Assessment and Plan: * Distended * Denies BM since last Thursday * Miralax added Time Spent With Patient Time with patient: Greater than 35 minutes Subjective Date/time seen: 09/19/21 0840 Interval history
[2021-09-19] MEDS: ASPIRIN 81 MG CHEWABLE TABLET PO (08:50)
[2021-09-19] MEDS: HYDROcodone/acetaminophen (*CRX) 5-325 MG TABLET 1 TAB PO (08:50)
[2021-09-19] MEDS: amLODIPine BESYLATE 5 MG TABLET 10 MG PO (08:51)
[2021-09-19] MEDS: SERTRALINE HCL 50 MG TABLET PO (08:51)
[2021-09-19] MEDS: TAMSULOSIN HCL 0.4 MG CAPSULE PO (08:51)
[2021-09-19] MEDS: MELOXICAM 7.5 MG TABLET 15 MG PO (08:51)
[2021-09-19] MEDS: FUROSEMIDE 40 MG TABLET PO (08:51)
[2021-09-19] MEDS: ENOXAPARIN 40 MG/0.4 ML SYRINGE SUB-Q (08:52)
[2021-09-19] MEDS: predniSONE 20 MG TABLET 40 MG PO (09:26)
--- NOTE | 2021-09-19 11:01 | PM.CNPUL ---
Assessment and Plan Assessment and plan (1) COPD exacerbation: Code(s): J44.1 - Chronic obstructive pulmonary disease with (acute) exacerbation Status: Acute Assessment and Plan: Patient with COPD as evidenced by his apical predominant centrilobular emphysema along with his tobacco use. Patient is on 3 L oxygen at home with rest and ambulation. Patient had increased phlegm production and shortness of breath with wheezing on 09/18 and was started on Solu-Medrol, ipratropium and albuterol nebulizers as well as ceftriaxone and azithromycin for possible pneumonia. 09/19 Patient states that he is doing much better today and he feels that he is back to normal. He still does have cough with phlegm production. I will change his Solu-Medrol to prednisone 40 mg p.o. q.day and continue his albuterol 2.5 nebs and ipratropium 0.5 nebs at q.4 hours today. I will continue ceftriaxone and azithromycin pending his blood cultures. Of note there are no focal infiltrates on his CT angiogram of the chest. Once cultures are negative at 48 hours I will deescalate. Currently saturations are 96% on 5 L nasal cannula and we will tighter FiO2 to maintain a goal saturation 90-92%. (2) Acute on chronic respiratory failure with hypoxia and hypercapnia: Code(s): J96.21 - Acute and chronic respiratory failure with hypoxia; J96.22 - Acute and chronic respiratory failure with hypercapnia Status: Acute Assessment and Plan: regarding patient's chronic respiratory failure he has a diagnosis of both COPD and obstructive sleep apnea. Patient tells me that approximately 5 years ago he was started on nasal prong CPAP but his doctors told this and this was not a runoff respiratory support and he was changed to a full face mask. Patient did try to wear full face mask but he could not tolerate this as there was leak and was very uncomfortable for him. Patient was placed back on his nasal prongs on room air but uses the machine in consistently. Interestingly the patient did wear full face mask last night with noninvasive ventilation of a VATS mode and he said he felt well for him. Patient has COPD with chronic hypercarbic respiratory failure with a serum bicarbonate of 33 on admission and a blood gas of 7.29/82/65. Patient would benefit from a noninvasive ventilation and currently had difficulty with the BiPAP settings but last night slept with a and a VATS mode and said that this was comfortable for him and he could tolerate that. AVAPS mode rate of 16, tidal volume 550, expiratory pressure 7, inspiratory minimum pressure 8, inspiratory maximum pressure 25, inspiratory time 1, rise 3 which is our middle and 35% FiO2. patient had a blood gas at the end of the night on these settings which was 7.38/65/82. I will increase his backup rate to 20 And repeat a blood gas in the morning on these settings. Will perform an overnight oximetry on 32% to his says his oxygenation. We will initiate the process of getting him a noninvasive ventilator given his chronic hypercarbic respiratory failure from COPD. Will follow with you History of Present Illness History of Present Illness Consult date: 09/19/21 Reason for consult: COPD Chief complaint: Tibial Plateau Fracture, COPD Narrative: 70-year-old man with a history of tobacco use and COPD on 3 L oxygen at rest and with ambulation, obstructive sleep apnea on CPAP with room air, hypertension, hyperlipidemia, benign prostatic hypertrophy who presented to our emergency room 3 days after a fall. Patient tells me that he was at home in his usual state of condition but ran out of oxygen. He fell in his driveway and hurt his right knee. He went to an outside hospital with a tibial fracture and was referred to orthopedic surgery. On 09/17 patient had worsening leg pain and was immobile and presented to our emergency department. He was admitted and seen by orthopedic surgery who stated he did not need any
[2021-09-19] MEDS: HYDROmorphone HCL INJ (*CRX) 1 MG/ML SYR 0.5 MG IV PUSH (12:18)
--- NOTE | 2021-09-19 14:41 | PC.NURSE ---
On 09/19/21, the student, [Roma Haney], provided care and completed [facility] documentation on this patient. I have reviewed the student's documentation and agree with the findings.
[2021-09-19] MEDS: polyethylene glycoL 3350 17 GM POWD.PACK PO (16:43)
[2021-09-19] MEDS: ATORVASTATIN 40 MG TABLET 80 MG PO (20:14)
[2021-09-19] MEDS: APIXABAN 2.5 MG TABLET PO (20:14)
[2021-09-19] MEDS: MONTELUKAST SODIUM 10 MG TABLET PO (20:14)
[2021-09-19] MEDS: FLUTICASONE/UMECLIDIN/VILANTER 100-62.5-25 MCG ELLIPTA 1 PUFF INHALATION (20:41)
[2021-09-20] VITALS (20 sets, daily range): BP systolic 131–152; BP diastolic 84–105; PULSE 63–117; RESP 18–24; TEMP 36.4–37; O2SAT 92–99
--- NOTE | 2021-09-20 00:46 | PCRCNOTE ---
Patient did not get 0000 treatment due to being on an apnea link.
[2021-09-20 04:17] LABS: Legionella pneumophila Ag Ur Not Detected (Not Detected)
[2021-09-20 04:58] LABS: Alveolar/Arterial O2 Gradient 78.8 mmHg; Base Excess ABG 10.4 mEq/l (+/-2.0); Fractional Inspired Oxygen 35 %; HCO3 ABG 38.2 mEq/l (22.0-26.0); Oxygen Content ABG 17.1 %vol (16.0-22.0); Oxygen Saturation ABG 96.7 % (95.0-100.0); Oxyhemoglobin 95.7 % THb (90.0-100.0); PO2 FiO2 Ratio Arterial Blood 2.66 %; Total Hemoglobin 12.6 g/dL (12.0-18.0); pH ABG 7.374 (7.350-7.450)
[2021-09-20 05:01] LABS: Device NON-INVASIVE VENT; Modified Allen's Test Pass; Non-Invasive Vent Rate 16 /MIN; PCO2 ABG 66.9 mmHg (35.0-45.0); Site Drawn RIGHT RADIAL
[2021-09-20 05:02] LABS: Non-Invasive Expiratory Pressure 7 CMH2O
--- NOTE | 2021-09-20 06:03 | PCRCNOTE ---
Pt's 0400 tx omitted due to apnea link. Will resume tx's at 0800.
[2021-09-20 06:23] LABS: Basophils Percent Auto 0.3 % (0.2-1.2); Hematocrit 33.9 % (42.0-52.0); Hemoglobin 11.2 g/dL (14.0-18.0); Immature Granulocyte Absolute 0.05 K/mm3 (0.00-0.031); Immature Granulocyte Percent A 0.5 % (0-0.5); Lymphocytes Absolute Auto 0.94 K/mm3 (0.9-3.2); Lymphocytes Percent Auto 8.8 % (18.3-44.2); Mean Corpuscular Hemoglobin 30.5 pg (26-34); Mean Corpuscular Volume 92.4 fl (80-100); Monocytes Absolute Auto 0.9 K/mm3 (0.1-0.6); Monocytes Percent Auto 8.1 % (2.6-8.5); Neutrophils Absolute Auto 8.8 K/mm3 (1.3-6.7); Neutrophils Percent Auto 82.3 % (45.5-73.1); Platelet Count Result 309 k/mm3 (150-375); Red Blood Count 3.67 M/mm3 (4.6-6.20); White Blood Count 10.7 K/mm3 (4.5-10.0)
[2021-09-20] MEDS: LEVOTHYROXINE SODIUM 150 MCG TABLET PO (06:28)
[2021-09-20 06:32] LABS: Alanine Aminotransferase 13 U/L (4-50); Albumin Level 3.5 g/dL (3.5-5.1); Alkaline Phosphatase 59 U/L (38-126); Aspartate Amino Transferase 18 U/L (17-59); Bilirubin,Total 0.5 mg/dL (0.2-1.3); Blood Urea Nitrogen 25 mg/dL (9-20); Calcium 9.2 mg/dL (8.4-10.2); Carbon Dioxide > 40 mmol/L (22-30); Chloride 96 mmol/L (98-107); Estimated CRCL calculation 107 ml/min; Estimated Glomerular Filt Rate > 60; Glucose 118 mg/dL (65-110); Magnesium 2.1 mg/dL (1.6-2.3); Potassium 4.4 mmol/L (3.4-5.0); Sodium 137 mmol/L (137-145)
[2021-09-20] MEDS: IPRATROPIUM BR 0.02% INH SOLN 0.5 MG/2.5 ML VIAL INHALATION ×4 (08:01→20:40)
[2021-09-20] MEDS: ALBUTEROL SULFATE NEB 2.5 MG/0.5 ML INH INHALATION (08:01)
[2021-09-20] MEDS: FLUTICASONE/UMECLIDIN/VILANTER 100-62.5-25 MCG ELLIPTA 1 PUFF INHALATION (08:02)
[2021-09-20] MEDS: FUROSEMIDE 40 MG TABLET PO (08:30)
[2021-09-20] MEDS: APIXABAN 2.5 MG TABLET PO ×2 (08:30→20:16)
[2021-09-20] MEDS: ASPIRIN 81 MG CHEWABLE TABLET PO (08:30)
[2021-09-20] MEDS: predniSONE 20 MG TABLET 40 MG PO (08:30)
[2021-09-20] MEDS: amLODIPine BESYLATE 5 MG TABLET 10 MG PO (08:30)
[2021-09-20] MEDS: SERTRALINE HCL 50 MG TABLET PO (08:31)
[2021-09-20] MEDS: MELOXICAM 7.5 MG TABLET 15 MG PO (08:31)
[2021-09-20] MEDS: TAMSULOSIN HCL 0.4 MG CAPSULE PO (08:31)
[2021-09-20] MEDS: polyethylene glycoL 3350 17 GM POWD.PACK PO (08:36)
--- NOTE | 2021-09-20 09:07 | PM.PNPUL ---
Progress Note: A&P Assessment and Plan (1) COPD exacerbation: Code(s): J44.1 - Chronic obstructive pulmonary disease with (acute) exacerbation Status: Acute Assessment and Plan: Patient with COPD as evidenced by his apical predominant centrilobular emphysema along with his tobacco use. Patient is on 3 L oxygen at home with rest and ambulation. Patient had increased phlegm production and shortness of breath with wheezing on 09/18 and was started on Solu-Medrol, ipratropium and albuterol nebulizers as well as ceftriaxone and azithromycin for possible pneumonia. 09/19 Patient states that he is doing much better today and he feels that he is back to normal. He still does have cough with phlegm production. I will change his Solu-Medrol to prednisone 40 mg p.o. q.day and continue his albuterol 2.5 nebs and ipratropium 0.5 nebs at q.4 hours today. I will continue ceftriaxone and azithromycin pending his blood cultures. Of note there are no focal infiltrates on his CT angiogram of the chest. Once cultures are negative at 48 hours I will deescalate. Currently saturations are 96% on 5 L nasal cannula and we will tighter FiO2 to maintain a goal saturation 90-92%. 09/20 Currently the patient states he is breathing normal now he has no wheezes and his phlegm has resolved. Currently is on 3 L nasal cannula with saturations 97%. I will discontinue his nebulizers today and continue his trilogy inhaler. I will discontinue ceftriaxone and finish a 5 day course of azithromycin IV if in hospital. From a pulmonary perspective patient is suitable for discharge on these pulmonary medications: Prednisone 40 mg PO Q day for 5 days total (last dose 09/22) Azithromycin 250 mg PO Q day for 5 days total (last dose 09/22) Trelegy 100/62.5/25 at 1 puff q.day Rescue albuterol 2 puffs q.4 hours p.r.n. shortness of breath or wheezing Montelukast 10 mg PO Q day Oxygen at 3 L NC when awake When sleeps: noninvasive ventilation with AVAPS-AE mode with a rate of 20, tidal volume 550, minimal expiratory pressure 5, maximal expiratory pressure 15, minimal inspiratory pressure 5, maximal inspiratory pressure 25, inspiratory time 1.0 second, rise 3 which is are middle setting and 4 L bleed in. we have initiated these orders through his DME, [facility] [employer] today. If noninvasive ventilator with AVAPS-AE mode not available at a rehab center then he should be discharged on BiPAP with rate 20, Inspiratory pressure 16, expiratory pressure 10, 4 L bleed in. Follow up with his culinary worker, Dr. Dominguez Krishnamurthy in 3-4 weeks with a download from his noninvasive ventilator. Discussed with Filemon Amaral, Pulmonary in patient services will resume on 09/23. (2) Acute on chronic respiratory failure with hypoxia and hypercapnia: Code(s): J96.21 - Acute and chronic respiratory failure with hypoxia; J96.22 - Acute and chronic respiratory failure with hypercapnia Status: Acute Assessment and Plan: 09/19 regarding patient's chronic respiratory failure he has a diagnosis of both COPD and obstructive sleep apnea. Patient tells me that approximately 5 years ago he was started on nasal prong CPAP but his doctors told this and this was not a runoff respiratory support and he was changed to a full face mask. Patient did try to wear full face mask but he could not tolerate this as there was leak and was very uncomfortable for him. Patient was placed back on his nasal prongs on room air but uses the machine in consistently. Interestingly the patient did wear full face mask last night with noninvasive ventilation of a VATS mode and he said he felt well for him. Patient has COPD with chronic hypercarbic respiratory failure with a serum bicarbonate of 33 on admission and a blood gas of 7.29/82/65. Patient would benefit from a noninvasive ventilation to prevent further deterioration and prevent further hospitalizations. Currently had difficulty with the BiPAP settin
--- NOTE | 2021-09-20 11:00 | PM.IMPN ---
Progress Note: A&P Assessment and Plan (1) COPD exacerbation: Code(s): J44.1 - Chronic obstructive pulmonary disease with (acute) exacerbation Status: Acute Assessment and Plan: Increase wheezes and Shortness of breath Could be an acute exacerbation, wonder if this is PNA Chronic oxygen use of 3LNC Continue home Trelegy Ellipta, singular 10mg Neb treatments PRN for shortness of breath Steroids converted 40mg PO daily Azithromycin day 3 Chest CTA severe emphysema Pulmonary consult IS Sputum culture ordered Need to go home on trilogy (2) Acute on chronic respiratory failure with hypoxia and hypercapnia: Code(s): J96.21 - Acute and chronic respiratory failure with hypoxia; J96.22 - Acute and chronic respiratory failure with hypercapnia Status: Acute Assessment and Plan: Chronic O2 use of 3L at home ABG finding respiratory acidosis with PaCO2 82.4 and PaO2 65.2, pH 7.293 09/18/21 Bipap 16/10 rate of 20, will need trilogy when getting home, bipap ok for placement Dimer elevated at 2.07 Chest CTA shows no PE Pulm consult thank you for your help decrease lovenox to 40mg, changed to eliquis (3) Closed fracture of tibial plateau: Qualifiers: Encounter type: initial encounter Laterality: right Qualified Code(s): S82.141A - Displaced bicondylar fracture of right tibia, initial encounter for closed fracture Code(s): S82.143A - Displaced bicondylar fracture of unspecified tibia, initial encounter for closed fracture Status: Acute Assessment and Plan: Knee CT: nondisplaced minimally displaced comminuted fractures of the anterior aspect of the proximal tibia Ortho consulted thank you for your help Knee immobilizer non weight bearing status for 6 weeks PT/OT Eliquis for DVT Dilaudid 0.5mg IV Q4hr PRN, add Tylenol and [place] Zofran for nausea vomiting (4) Hypertension: Qualifiers: Hypertension type: unspecified Qualified Code(s): I10 - Essential (primary) hypertension Code(s): I10 - Essential (primary) hypertension Status: Acute Assessment and Plan: Current BP is 134/85 Could be high due to pain Continue home amlodipine 10mg PO daily Trend BP adjust medications as needed (5) Hypothyroidism: Code(s): E03.9 - Hypothyroidism, unspecified Status: Acute Assessment and Plan: Continue home levothyroxine Check TSH (6) Hyperlipidemia: Code(s): E78.5 - Hyperlipidemia, unspecified Status: Acute Assessment and Plan: Continue home atorvastatin (7) Discharge planning issues: Code(s): Z02.9 - Encounter for administrative examinations, unspecified Status: Acute Assessment and Plan: Patient having a hard time being placed due to trilogy needs Pulmonary high patient to go on BiPAP Care coordination to continue to follow Will need Auth Time Spent With Patient Time with patient: Greater than 35 minutes Subjective Date/time seen: 09/20/21 11:00 Interval history: Date/Time: 09/18/21819 Chief Complaint: Leg fracture with limited movement Narrative: Patient is a 70 year old male with a past medical history of COPD, HTN, HLD, and BPH that presented to the ED fro evaluation of right leg pain and immobility. Patient explained that he fell 3 days ago. He was seen at [facility] which x-ray showed that he had a fracture and was told to follow up with orthopedics as an outpatient. When he tried to see an orthopedic provider, he was told that his insurance was not accepted, and they were unable to see him. He presented yesterday due to pain and inability to be mobile. Patient lives by himself, and concern comes in that the patient would not be able to care for himself. This morning I went to see the patient the patient was diaphoretic extremely short of breath with wheezes. Patient denied chest
--- NOTE | 2021-09-20 11:00 | P.PNIM_ITS ---
Progress Note: A&P Assessment and Plan (1) COPD exacerbation: Code(s): J44.1 - Chronic obstructive pulmonary disease with (acute) exacerbation Status: Acute Assessment and Plan: * Increase wheezes and Shortness of breath * Could be an acute exacerbation, wonder if this is PNA * Chronic oxygen use of 3LNC * Continue home Trelegy Ellipta, singular 10mg * Neb treatments PRN for shortness of breath * Steroids converted 40mg PO daily * Azithromycin day 3 * Chest CTA severe emphysema * Pulmonary consult * IS * Sputum culture ordered * Need to go home on trilogy (2) Acute on chronic respiratory failure with hypoxia and hypercapnia: Code(s): J96.21 - Acute and chronic respiratory failure with hypoxia; J96.22 - Acute and chronic respiratory failure with hypercapnia Status: Acute Assessment and Plan: * Chronic O2 use of 3L at home * ABG finding respiratory acidosis with PaCO2 82.4 and PaO2 65.2, pH 7.293 09/18/21 * Bipap 16/10 rate of 20, will need trilogy when getting home, bipap ok for placement * Dimer elevated at 2.07 * Chest CTA shows no PE * Pulm consult thank you for your help * decrease lovenox to 40mg, changed to eliquis (3) Closed fracture of tibial plateau: Qualifiers: Encounter type: initial encounter Laterality: right Qualified Code(s): S82.141A - Displaced bicondylar fracture of right tibia, initial encounter for closed fracture Code(s): S82.143A - Displaced bicondylar fracture of unspecified tibia, initial encounter for closed fracture Status: Acute Assessment and Plan: * Knee CT: nondisplaced minimally displaced comminuted fractures of the anterior aspect of the proximal tibia * Ortho consulted thank you for your help * Knee immobilizer * non weight bearing status for 6 weeks * PT/OT * Eliquis for DVT * Dilaudid 0.5mg IV Q4hr PRN, add Tylenol and [place] * Zofran for nausea vomiting (4) Hypertension: Qualifiers: Hypertension type: unspecified Qualified Code(s): I10 - Essential (primary) hypertension Code(s): I10 - Essential (primary) hypertension Status: Acute Assessment and Plan: * Current BP is 134/85 * Could be high due to pain * Continue home amlodipine 10mg PO daily * Trend BP * adjust medications as needed (5) Hypothyroidism: Code(s): E03.9 - Hypothyroidism, unspecified Status: Acute Assessment and Plan: * Continue home levothyroxine * Check TSH (6) Hyperlipidemia: Code(s): E78.5 - Hyperlipidemia, unspecified Status: Acute Assessment and Plan: * Continue home atorvastatin (7) Discharge planning issues: Code(s): Z02.9 - Encounter for administrative examinations, unspecified Status: Acute Assessment and Plan: * Patient having a hard time being placed due to trilogy needs * Pulmonary high patient to go on BiPAP * Care coordination to continue to follow * Will need Auth Time Spent With Patient Time with patient: Greater than 35 minutes Subjective Date/time seen: 09/20/21 11:00 Interval history: Date/Time: 09/18/21819 Chief Complaint: Leg fracture with limited movement Narrative: Patient is a 70 year old male with a past medical history of COPD, HTN, HLD, and BPH that presented to the ED fro evaluation of right leg pain and immobility. Patient explained that he fell 3 days ago. He was seen at [facility]
--- NOTE | 2021-09-20 15:18 | PM.PNORT ---
Progress Note: A&P Additional Plan Patient has his brace. I have adjusted it removed via completely and reapplied it making it longer. I have left orders for the nurses to adjusted every shift as it will tend to slide down to his ankle which it was today. I have reiterated the patient that he must keep a pillow underneath his calf and heel so there is no pillow under the knee to keep the knee straight and he must try to use his thigh muscles to move the right leg while he is in bed. He was able to get up with max assist with a therapist but getting back into bed he needed the Rehana lift I suspect that he will need the Rehana lift much of the time and I have left orders that he is either max assist of 2 Rehana lift at the shelter. I have left a prescription for [place] on the chart and I would like to stay on the Eliquis and MiraLax for constipation prophylaxis. I will want to follow up with him in the office in approximately 2 weeks. Subjective Subjective Date/Time Seen: 09/20/21 15:18 Objective Data Vital Signs Vital Signs: Vital Signs - 24 hr 09/19/21 15:56 09/19/21 16:00 09/19/21 16:38 Temperature 36.6 C Pulse Rate 93 84 102 H Respiratory Rate 24 H 20 Blood Pressure 149/77 H Pulse Oximetry 96 95 09/19/21 16:41 09/19/21 16:47 09/19/21 17:57 Temperature Pulse Rate 97 102 H Respiratory Rate 20 Blood Pressure Pulse Oximetry 91 09/19/21 19:52 09/19/21 20:00 09/19/21 20:02 Temperature 36.3 C L Pulse Rate 100 99 92 Respiratory Rate 22 H 20 Blood Pressure 159/77 H Pulse Oximetry 93 95 09/19/21 20:03 09/19/21 20:46 09/19/21 22:20 Temperature Pulse Rate 92 93 99 Respiratory Rate 20 23 H Blood Pressure Pulse Oximetry 95 96 09/20/21 00:00 09/20/21 00:16 09/20/21 01:48 Temperature 36.4 C Pulse Rate 71 72 Respiratory Rate 22 H Blood Pressure 142/93 H Pulse Oximetry 97 95 09/20/21 04:00 09/20/21 08:00 09/20/21 08:18 Temperature 37.0 C 36.6 C Pulse Rate 80 74 95 Respiratory Rate 19 20 18 Blood Pressure 138/102 H 144/105 H Pulse Oximetry 95 97 09/20/21 10:00 09/20/21 12:00 09/20/21 12:20 Temperature 36.6 C Pulse Rate 117 H 97 86 Respiratory Rate 24 H 18 Blood Pressure 134/85 Pulse Oximetry 99 09/20/21 12:27 09/20/21 14:00 Temperature Pulse Rate 89 98 Respiratory Rate 18 Blood Pressure Pulse Oximetry Intake/Output Intake/Output: Intake & Output 09/17/21 09/18/21 09/19/21 09/20/21 23:59 23:59 23:59 23:59 Intake Total 860 1270 1110 Output Total 1150 1000 600 Balance -290 270 510 Meds/Results Medications: Active Medications Generic Name Dose Route Start Last Admin Trade Name Freq PRN Reason Stop Dose Admin Acetaminophen 1,000 mg 09/18/21 07:54 Acetaminophen 500 Mg Tablet PO Q6H PRN Mild Pain (1-3) or Fever Hydrocodone Bitart/Acetaminophen 1 tab 09/18/21 07:54 09/19/21 08:50 Hydrocodone/Acetaminophen (*Crx) 5-325 Mg Tablet PO 1 tab Q6H PRN Administration Pain Rated 4-6 Amlodipine Besylate 10 mg 09/18/21 09:00 09/20/21 08:30 Amlodipine Besylate 5 Mg Tablet PO 10 mg DAILY WILLY Administration Apixaban 2.5 mg 09/19/21 11:10 09/20/21 08:30 Apixaban 2.5 Mg Tablet PO 10/31/21 11:09 2.5 mg Q12HR WILLY Administration Aspirin 81 mg 09/18/21 08:00 09/20/21 08:30 Aspirin 81 Mg Chewable Tablet PO 81 mg DAILY@0800 WILLY Administration Atorvastatin Calcium 80 mg 09/18/21 21:00 09/19/21 20:14 Atorvastatin 40 Mg Tablet PO 80 mg HS WILLY Administration Fluticasone/Umeclidinium/Vilanterol 1 puff 09/21/21 08:00 Fluticasone/Umeclidin/Vilanter 100-62.5-25 Mcg Ellipta INHALATION DAILYRT WILLY Furosemide 40 mg 09/18/21 09:00 09/20/21 08:30 Furosemide 40 Mg Tablet PO 40 mg DAILY WILLY Administration Azithromycin 500 mg in 250 mls @ 250 mls/hr 09/18/21 10:00 09/20/21 09:34 Zithromax IVPB 09/22/21 12:00 125 mls/hr Q24H WILLY Adminis
--- NOTE | 2021-09-20 18:18 | PC.NURSE ---
Report given to NICK [place]
--- NOTE | 2021-09-20 18:45 | PC.NURSE ---
This patient, Bjorn Malave, was transferred to [facility] on 09/20/21 at 1845. Personal belongings sent with patient. Report given to Rosa Elena. Appropriate documentation sent with patient.
--- NOTE | 2021-09-20 18:55 | PC.NURSE ---
This patient, Bjorn Malave, was received from IMU on 09/20/21 at 1855. Patient/family oriented to unit policies and routines. Report received from NICK Kaye.
[2021-09-20] MEDS: MONTELUKAST SODIUM 10 MG TABLET PO (20:17)
[2021-09-20] MEDS: ATORVASTATIN 40 MG TABLET 80 MG PO (20:17)
[2021-09-21] VITALS (16 sets, daily range): BP systolic 110–159; BP diastolic 64–99; PULSE 71–109; RESP 18–24; TEMP 35.8–36.4; O2SAT 92–99
[2021-09-21] MEDS: IPRATROPIUM BR 0.02% INH SOLN 0.5 MG/2.5 ML VIAL INHALATION ×5 (00:14→17:43)
[2021-09-21] MEDS: LEVOTHYROXINE SODIUM 150 MCG TABLET PO (05:44)
[2021-09-21 07:25] LABS: Basophils Percent Auto 0.3 % (0.2-1.2); Eosinophils Absolute Auto 0.1 K/mm3 (0-0.3); Eosinophils Percent Auto 0.6 % (0-4.4); Hemoglobin 11.2 g/dL (14.0-18.0); Immature Granulocyte Absolute 0.19 K/mm3 (0.00-0.031); Immature Granulocyte Percent A 2.2 % (0-0.5); Lymphocytes Absolute Auto 1.31 K/mm3 (0.9-3.2); Lymphocytes Percent Auto 15.2 % (18.3-44.2); Mean Corpuscular Hemoglobin 29.9 pg (26-34); Mean Corpuscular Volume 93.6 fl (80-100); Mean Platelet Volume 9.2 fl (7.4-10.4); Monocytes Absolute Auto 0.8 K/mm3 (0.1-0.6); Monocytes Percent Auto 8.7 % (2.6-8.5); Neutrophils Absolute Auto 6.3 K/mm3 (1.3-6.7); Platelet Count Result 351 k/mm3 (150-375); Red Blood Count 3.74 M/mm3 (4.6-6.20); Red Cell Distribution Width 13.1 % (11.5-14.5); White Blood Count 8.6 K/mm3 (4.5-10.0)
[2021-09-21] MEDS: SERTRALINE HCL 50 MG TABLET PO (09:03)
[2021-09-21] MEDS: ASPIRIN 81 MG CHEWABLE TABLET PO (09:03)
[2021-09-21] MEDS: amLODIPine BESYLATE 5 MG TABLET 10 MG PO (09:03)
[2021-09-21] MEDS: APIXABAN 2.5 MG TABLET PO ×2 (09:03→20:19)
[2021-09-21] MEDS: TAMSULOSIN HCL 0.4 MG CAPSULE PO (09:03)
[2021-09-21] MEDS: FUROSEMIDE 40 MG TABLET PO (09:04)
[2021-09-21] MEDS: polyethylene glycoL 3350 17 GM POWD.PACK PO (09:04)
[2021-09-21] MEDS: predniSONE 20 MG TABLET 40 MG PO (09:04)
[2021-09-21 09:17] LABS: Alanine Aminotransferase 14 U/L (4-50); Albumin Level 3.4 g/dL (3.5-5.1); Alkaline Phosphatase 58 U/L (38-126); Aspartate Amino Transferase 19 U/L (17-59); Bilirubin,Total 0.6 mg/dL (0.2-1.3); Blood Urea Nitrogen 27 mg/dL (9-20); Calcium 8.7 mg/dL (8.4-10.2); Carbon Dioxide > 40 mmol/L (22-30); Chloride 96 mmol/L (98-107); Estimated CRCL calculation 107 ml/min; Estimated Glomerular Filt Rate > 60; Glucose 98 mg/dL (65-110); Magnesium 2.1 mg/dL (1.6-2.3); Sodium 136 mmol/L (137-145)
[2021-09-21] MEDS: FLUTICASONE/UMECLIDIN/VILANTER 100-62.5-25 MCG ELLIPTA 1 PUFF INHALATION (09:37)
--- NOTE | 2021-09-21 10:00 | P.PNIM_ITS ---
Progress Note: A&P Assessment and Plan (1) COPD exacerbation: Code(s): J44.1 - Chronic obstructive pulmonary disease with (acute) exacerbation Status: Acute Assessment and Plan: * Increase wheezes and Shortness of breath * Could be an acute exacerbation, wonder if this is PNA * Chronic oxygen use of 3LNC * Continue home Trelegy Ellipta, singular 10mg * Neb treatments PRN for shortness of breath * Steroids converted 40mg PO daily day 4 * Azithromycin day 4 * Chest CTA severe emphysema * Pulmonary consult thank you for your help * IS * Sputum culture ordered * Need to go home on trilogy (2) Acute on chronic respiratory failure with hypoxia and hypercapnia: Code(s): J96.21 - Acute and chronic respiratory failure with hypoxia; J96.22 - Acute and chronic respiratory failure with hypercapnia Status: Acute Assessment and Plan: * Chronic O2 use of 3L at home * ABG finding respiratory acidosis with PaCO2 82.4 and PaO2 65.2, pH 7.293 09/18/21 * Bipap 16/10 rate of 20, will need trilogy when getting home, bipap ok for placement * Dimer elevated at 2.07 * Chest CTA shows no PE * Pulm consult thank you for your help * decrease lovenox to 40mg, changed to eliquis (3) Closed fracture of tibial plateau: Qualifiers: Encounter type: initial encounter Laterality: right Qualified Code(s): S82.141A - Displaced bicondylar fracture of right tibia, initial encounter for closed fracture Code(s): S82.143A - Displaced bicondylar fracture of unspecified tibia, initial encounter for closed fracture Status: Acute Assessment and Plan: * Knee CT: nondisplaced minimally displaced comminuted fractures of the anterior aspect of the proximal tibia * Ortho consulted thank you for your help * Knee immobilizer * non weight bearing status for 6 weeks * PT/OT * Eliquis for DVT * Dilaudid 0.5mg IV Q4hr PRN, add Tylenol and [place] * Zofran for nausea vomiting (4) Hypertension: Qualifiers: Hypertension type: unspecified Qualified Code(s): I10 - Essential (primary) hypertension Code(s): I10 - Essential (primary) hypertension Status: Acute Assessment and Plan: * Current BP is 114/65 * Could be high due to pain * Continue home amlodipine 10mg PO daily * Trend BP * adjust medications as needed (5) Hypothyroidism: Code(s): E03.9 - Hypothyroidism, unspecified Status: Acute Assessment and Plan: * Continue home levothyroxine * Check TSH (6) Hyperlipidemia: Code(s): E78.5 - Hyperlipidemia, unspecified Status: Acute Assessment and Plan: * Continue home atorvastatin (7) Discharge planning issues: Code(s): Z02.9 - Encounter for administrative examinations, unspecified Status: Acute Assessment and Plan: * Patient having a hard time being placed due to trilogy needs * Pulmonary high patient to go on BiPAP * Care coordination to continue to follow * Will need Auth Time Spent With Patient Time with patient: Greater than 35 minutes Subjective Date/time seen: 09/21/21 1000 Interval history: Date/Time: 09/18/21 0820 Chief Complaint: Leg fracture with limited movement Narrative: Patient is a 70 year old male with a past medical history of COPD, HTN, HLD, and BPH that presented to the ED fro evaluation of right leg pain and immobility. Patient explained th
--- NOTE | 2021-09-21 10:00 | PM.IMPN ---
Progress Note: A&P Assessment and Plan (1) COPD exacerbation: Code(s): J44.1 - Chronic obstructive pulmonary disease with (acute) exacerbation Status: Acute Assessment and Plan: Increase wheezes and Shortness of breath Could be an acute exacerbation, wonder if this is PNA Chronic oxygen use of 3LNC Continue home Trelegy Ellipta, singular 10mg Neb treatments PRN for shortness of breath Steroids converted 40mg PO daily day 4 Azithromycin day 4 Chest CTA severe emphysema Pulmonary consult thank you for your help IS Sputum culture ordered Need to go home on trilogy (2) Acute on chronic respiratory failure with hypoxia and hypercapnia: Code(s): J96.21 - Acute and chronic respiratory failure with hypoxia; J96.22 - Acute and chronic respiratory failure with hypercapnia Status: Acute Assessment and Plan: Chronic O2 use of 3L at home ABG finding respiratory acidosis with PaCO2 82.4 and PaO2 65.2, pH 7.293 09/18/21 Bipap 16/10 rate of 20, will need trilogy when getting home, bipap ok for placement Dimer elevated at 2.07 Chest CTA shows no PE Pulm consult thank you for your help decrease lovenox to 40mg, changed to eliquis (3) Closed fracture of tibial plateau: Qualifiers: Encounter type: initial encounter Laterality: right Qualified Code(s): S82.141A - Displaced bicondylar fracture of right tibia, initial encounter for closed fracture Code(s): S82.143A - Displaced bicondylar fracture of unspecified tibia, initial encounter for closed fracture Status: Acute Assessment and Plan: Knee CT: nondisplaced minimally displaced comminuted fractures of the anterior aspect of the proximal tibia Ortho consulted thank you for your help Knee immobilizer non weight bearing status for 6 weeks PT/OT Eliquis for DVT Dilaudid 0.5mg IV Q4hr PRN, add Tylenol and [place] Zofran for nausea vomiting (4) Hypertension: Qualifiers: Hypertension type: unspecified Qualified Code(s): I10 - Essential (primary) hypertension Code(s): I10 - Essential (primary) hypertension Status: Acute Assessment and Plan: Current BP is 114/65 Could be high due to pain Continue home amlodipine 10mg PO daily Trend BP adjust medications as needed (5) Hypothyroidism: Code(s): E03.9 - Hypothyroidism, unspecified Status: Acute Assessment and Plan: Continue home levothyroxine Check TSH (6) Hyperlipidemia: Code(s): E78.5 - Hyperlipidemia, unspecified Status: Acute Assessment and Plan: Continue home atorvastatin (7) Discharge planning issues: Code(s): Z02.9 - Encounter for administrative examinations, unspecified Status: Acute Assessment and Plan: Patient having a hard time being placed due to trilogy needs Pulmonary high patient to go on BiPAP Care coordination to continue to follow Will need Auth Time Spent With Patient Time with patient: Greater than 35 minutes Subjective Date/time seen: 09/21/21 1000 Interval history: Date/Time: 09/18/21 0820 Chief Complaint: Leg fracture with limited movement Narrative: Patient is a 70 year old male with a past medical history of COPD, HTN, HLD, and BPH that presented to the ED fro evaluation of right leg pain and immobility. Patient explained that he fell 3 days ago. He was seen at [facility] which x-ray showed that he had a fracture and was told to follow up with orthopedics as an outpatient. When he tried to see an orthopedic provider, he was told that his insurance was not accepted, and they were unable to see him. He presented yesterday due to pain and inability to be mobile. Patient lives by himself, and concern comes in that the patient would not be able to care for himself. This morning I went to see the patient the patient was diaphoretic extremely short of breath
--- NOTE | 2021-09-21 17:42 | PCRCNOTE ---
Window of time for administration has passed. See next scheduled administration.
[2021-09-21] MEDS: ATORVASTATIN 40 MG TABLET 80 MG PO (20:20)
[2021-09-21] MEDS: MONTELUKAST SODIUM 10 MG TABLET PO (20:21)
[2021-09-22] VITALS (19 sets, daily range): BP systolic 104–152; BP diastolic 81–94; PULSE 66–104; RESP 18–25; TEMP 36.1–36.7; O2SAT 92–100
[2021-09-22] MEDS: IPRATROPIUM BR 0.02% INH SOLN 0.5 MG/2.5 ML VIAL INHALATION ×5 (01:42→20:30)
[2021-09-22] MEDS: LEVOTHYROXINE SODIUM 150 MCG TABLET PO (05:51)
--- NOTE | 2021-09-22 06:45 | PCRCNOTE ---
Window of time for administration has passed. See next scheduled administration.
--- NOTE | 2021-09-22 08:20 | P.PNIM_ITS ---
Progress Note: A&P Assessment and Plan (1) COPD exacerbation: Code(s): J44.1 - Chronic obstructive pulmonary disease with (acute) exacerbation Status: Acute Assessment and Plan: * Wheezes and Shortness of breath which seems to be his baseline * Acute exacerbation * Chronic oxygen use of 3LNC * Continue home Trelegy Ellipta, singular 10mg * Neb treatments PRN for shortness of breath * Steroids converted 40mg PO daily day 5, Last dose * Azithromycin day 5, Last Dose * Chest CTA severe emphysema * Pulmonary consult thank you for your help * IS * Sputum culture ordered * Need to go home on trilogy (2) Acute on chronic respiratory failure with hypoxia and hypercapnia: Code(s): J96.21 - Acute and chronic respiratory failure with hypoxia; J96.22 - Acute and chronic respiratory failure with hypercapnia Status: Acute Assessment and Plan: * Chronic O2 use of 3L at home * ABG finding respiratory acidosis with PaCO2 82.4 and PaO2 65.2, pH 7.293 09/18/21 * Bipap 16/10 rate of 20, will need trilogy when getting home, bipap ok for placement * Dimer elevated at 2.07 * Chest CTA shows no PE * Pulm consult thank you for your help * decrease lovenox to 40mg, changed to eliquis (3) Closed fracture of tibial plateau: Qualifiers: Encounter type: initial encounter Laterality: right Qualified Code(s): S82.141A - Displaced bicondylar fracture of right tibia, initial encounter for closed fracture Code(s): S82.143A - Displaced bicondylar fracture of unspecified tibia, initial encounter for closed fracture Status: Acute Assessment and Plan: * Knee CT: nondisplaced minimally displaced comminuted fractures of the anterior aspect of the proximal tibia * Ortho consulted thank you for your help * Knee immobilizer * non weight bearing status for 6 weeks * PT/OT * Eliquis for DVT * Dilaudid 0.5mg IV Q4hr PRN, add Tylenol and [place] * Zofran for nausea vomiting (4) Hypertension: Qualifiers: Hypertension type: unspecified Qualified Code(s): I10 - Essential (primary) hypertension Code(s): I10 - Essential (primary) hypertension Status: Acute Assessment and Plan: * Current BP is 150/94 * Could be high due to pain * Continue home amlodipine 10mg PO daily * Trend BP * adjust medications as needed (5) Hypothyroidism: Code(s): E03.9 - Hypothyroidism, unspecified Status: Acute Assessment and Plan: * Continue home levothyroxine * Check TSH in the am (6) Hyperlipidemia: Code(s): E78.5 - Hyperlipidemia, unspecified Status: Acute Assessment and Plan: * Continue home atorvastatin (7) Discharge planning issues: Code(s): Z02.9 - Encounter for administrative examinations, unspecified Status: Acute Assessment and Plan: * Patient having a hard time being placed due to trilogy needs * Pulmonary high patient to go on BiPAP * Care coordination to continue to follow * Will need Auth Time Spent With Patient Time with patient: Greater than 35 minutes Subjective Date/time seen: 09/22/21 08:20 Interval history: Date/Time: 09/18/21819 Chief Complaint: Leg fracture with limited movement Narrative: Patient is a 70 year old male with a past medical history of COPD, HTN, HLD, and BPH that presented to the ED fro evaluation of right leg pain and immobility. Julius
--- NOTE | 2021-09-22 08:20 | PM.IMPN ---
Progress Note: A&P Assessment and Plan (1) COPD exacerbation: Code(s): J44.1 - Chronic obstructive pulmonary disease with (acute) exacerbation Status: Acute Assessment and Plan: Wheezes and Shortness of breath which seems to be his baseline Acute exacerbation Chronic oxygen use of 3LNC Continue home Trelegy Ellipta, singular 10mg Neb treatments PRN for shortness of breath Steroids converted 40mg PO daily day 5, Last dose Azithromycin day 5, Last Dose Chest CTA severe emphysema Pulmonary consult thank you for your help IS Sputum culture ordered Need to go home on trilogy (2) Acute on chronic respiratory failure with hypoxia and hypercapnia: Code(s): J96.21 - Acute and chronic respiratory failure with hypoxia; J96.22 - Acute and chronic respiratory failure with hypercapnia Status: Acute Assessment and Plan: Chronic O2 use of 3L at home ABG finding respiratory acidosis with PaCO2 82.4 and PaO2 65.2, pH 7.293 09/18/21 Bipap 16/10 rate of 20, will need trilogy when getting home, bipap ok for placement Dimer elevated at 2.07 Chest CTA shows no PE Pulm consult thank you for your help decrease lovenox to 40mg, changed to eliquis (3) Closed fracture of tibial plateau: Qualifiers: Encounter type: initial encounter Laterality: right Qualified Code(s): S82.141A - Displaced bicondylar fracture of right tibia, initial encounter for closed fracture Code(s): S82.143A - Displaced bicondylar fracture of unspecified tibia, initial encounter for closed fracture Status: Acute Assessment and Plan: Knee CT: nondisplaced minimally displaced comminuted fractures of the anterior aspect of the proximal tibia Ortho consulted thank you for your help Knee immobilizer non weight bearing status for 6 weeks PT/OT Eliquis for DVT Dilaudid 0.5mg IV Q4hr PRN, add Tylenol and [place] Zofran for nausea vomiting (4) Hypertension: Qualifiers: Hypertension type: unspecified Qualified Code(s): I10 - Essential (primary) hypertension Code(s): I10 - Essential (primary) hypertension Status: Acute Assessment and Plan: Current BP is 150/94 Could be high due to pain Continue home amlodipine 10mg PO daily Trend BP adjust medications as needed (5) Hypothyroidism: Code(s): E03.9 - Hypothyroidism, unspecified Status: Acute Assessment and Plan: Continue home levothyroxine Check TSH in the am (6) Hyperlipidemia: Code(s): E78.5 - Hyperlipidemia, unspecified Status: Acute Assessment and Plan: Continue home atorvastatin (7) Discharge planning issues: Code(s): Z02.9 - Encounter for administrative examinations, unspecified Status: Acute Assessment and Plan: Patient having a hard time being placed due to trilogy needs Pulmonary high patient to go on BiPAP Care coordination to continue to follow Will need Auth Time Spent With Patient Time with patient: Greater than 35 minutes Subjective Date/time seen: 09/22/21 08:20 Interval history: Date/Time: 09/18/21819 Chief Complaint: Leg fracture with limited movement Narrative: Patient is a 70 year old male with a past medical history of COPD, HTN, HLD, and BPH that presented to the ED fro evaluation of right leg pain and immobility. Patient explained that he fell 3 days ago. He was seen at which x-ray showed that he had a fracture and was told to follow up with orthopedics as an outpatient. When he tried to see an orthopedic provider, he was told that his insurance was not accepted, and they were unable to see him. He presented yesterday due to pain and inability to be mobile. Patient lives by himself, and concern comes in that the patient would not be able to care for himself. This morning I went to see the patient the patient was diaphoretic extreme
[2021-09-22] MEDS: FUROSEMIDE 40 MG TABLET PO (08:48)
[2021-09-22] MEDS: predniSONE 20 MG TABLET 40 MG PO (08:48)
[2021-09-22] MEDS: TAMSULOSIN HCL 0.4 MG CAPSULE PO (08:48)
[2021-09-22] MEDS: APIXABAN 2.5 MG TABLET PO ×2 (08:48→20:23)
[2021-09-22] MEDS: amLODIPine BESYLATE 5 MG TABLET 10 MG PO (08:48)
[2021-09-22] MEDS: ASPIRIN 81 MG CHEWABLE TABLET PO (08:49)
[2021-09-22] MEDS: SERTRALINE HCL 50 MG TABLET PO (08:49)
[2021-09-22] MEDS: polyethylene glycoL 3350 17 GM POWD.PACK PO (08:49)
[2021-09-22] MEDS: FLUTICASONE/UMECLIDIN/VILANTER 100-62.5-25 MCG ELLIPTA 1 PUFF INHALATION (09:16)
[2021-09-22 10:24] LABS: NT Pro B Type Natriuretic Pept 164 pg/mL (5-100)
[2021-09-22] MEDS: SENNA/DOCUSATE SODIUM TABLET 1 TAB PO (10:34)
[2021-09-22] MEDS: MONTELUKAST SODIUM 10 MG TABLET PO (20:23)
[2021-09-22] MEDS: ATORVASTATIN 40 MG TABLET 80 MG PO (20:23)
[2021-09-23] VITALS (18 sets, daily range): BP systolic 124–169; BP diastolic 68–82; PULSE 52–96; RESP 18–24; TEMP 36.3–36.7; O2SAT 94–99
--- NOTE | 2021-09-23 03:38 | PCRCNOTE ---
Window of time for administration has passed. See next scheduled administration.
[2021-09-23] MEDS: IPRATROPIUM BR 0.02% INH SOLN 0.5 MG/2.5 ML VIAL INHALATION ×5 (03:41→20:21)
[2021-09-23 05:07] LABS: Basophils Absolute Auto 0.1 K/mm3 (0.0-0.1); Basophils Percent Auto 0.4 % (0.2-1.2); Eosinophils Percent Auto 0.2 % (0-4.4); Hemoglobin 12.3 g/dL (14.0-18.0); Immature Granulocyte Absolute 0.22 K/mm3 (0.00-0.031); Immature Granulocyte Percent A 1.8 % (0-0.5); Lymphocytes Absolute Auto 1.54 K/mm3 (0.9-3.2); Lymphocytes Percent Auto 12.3 % (18.3-44.2); Mean Corpuscular HGB Conc 33.2 g/dl (32-36); Mean Corpuscular Hemoglobin 29.9 pg (26-34); Mean Corpuscular Volume 89.8 fl (80-100); Monocytes Percent Auto 7.8 % (2.6-8.5); Neutrophils Absolute Auto 9.7 K/mm3 (1.3-6.7); Neutrophils Percent Auto 77.5 % (45.5-73.1); Platelet Count Result 380 k/mm3 (150-375); Red Blood Count 4.12 M/mm3 (4.6-6.20); Red Cell Distribution Width 12.8 % (11.5-14.5); White Blood Count 12.5 K/mm3 (4.5-10.0)
[2021-09-23 05:17] LABS: Alanine Aminotransferase 16 U/L (4-50); Albumin Level 3.5 g/dL (3.5-5.1); Alkaline Phosphatase 67 U/L (38-126); Aspartate Amino Transferase 21 U/L (17-59); Bilirubin,Total 0.7 mg/dL (0.2-1.3); Blood Urea Nitrogen 23 mg/dL (9-20); Calcium 9.1 mg/dL (8.4-10.2); Carbon Dioxide > 40 mmol/L (22-30); Chloride 96 mmol/L (98-107); Estimated CRCL calculation 96 ml/min; Estimated Glomerular Filt Rate > 60; Glucose 108 mg/dL (65-110); Magnesium 2.4 mg/dL (1.6-2.3); Potassium 4.2 mmol/L (3.4-5.0); Sodium 137 mmol/L (137-145)
[2021-09-23] MEDS: LEVOTHYROXINE SODIUM 150 MCG TABLET PO (05:42)
[2021-09-23 06:17] LABS: Thyroid Stimulating Hormone Reflex 0.274 uIU/mL (0.465-4.68)
--- NOTE | 2021-09-23 08:00 | P.PNIM_ITS ---
Progress Note: A&P Assessment and Plan (1) COPD exacerbation: Code(s): J44.1 - Chronic obstructive pulmonary disease with (acute) exacerbation Status: Acute Assessment and Plan: * Wheezes better today and less Short of breath which seems to be his baseline * Acute exacerbation * Chronic oxygen use of 3LNC * Continue home Trelegy Ellipta, singular 10mg * Neb treatments PRN for shortness of breath * Steroids converted 40mg PO daily, completed * Azithromycin day 5, completed * Chest CTA severe emphysema * Pulmonary consult thank you for your help * IS * Sputum culture ordered * Need to go home on trilogy (2) Acute on chronic respiratory failure with hypoxia and hypercapnia: Code(s): J96.21 - Acute and chronic respiratory failure with hypoxia; J96.22 - Acute and chronic respiratory failure with hypercapnia Status: Acute Assessment and Plan: * Chronic O2 use of 3L at home * ABG finding respiratory acidosis with PaCO2 82.4 and PaO2 65.2, pH 7.293 09/18/21 * Bipap 16/10 rate of 20, will need trilogy when getting home, bipap ok for placement * Dimer elevated at 2.07 * Chest CTA shows no PE * Pulm consult thank you for your help * decrease lovenox to 40mg, changed to eliquis (3) Closed fracture of tibial plateau: Qualifiers: Encounter type: initial encounter Laterality: right Qualified Code(s): S82.141A - Displaced bicondylar fracture of right tibia, initial encounter for closed fracture Code(s): S82.143A - Displaced bicondylar fracture of unspecified tibia, initial encounter for closed fracture Status: Acute Assessment and Plan: * Knee CT: nondisplaced minimally displaced comminuted fractures of the anterior aspect of the proximal tibia * Ortho consulted thank you for your help * Knee immobilizer * non weight bearing status for 6 weeks * PT/OT * Eliquis for DVT * Dilaudid 0.5mg IV Q4hr PRN, add Tylenol and [place] * Zofran for nausea vomiting (4) Hypertension: Qualifiers: Hypertension type: unspecified Qualified Code(s): I10 - Essential (primary) hypertension Code(s): I10 - Essential (primary) hypertension Status: Acute Assessment and Plan: * Current BP is 124/82 * Could be high due to pain * Continue home amlodipine 10mg PO daily * Trend BP * adjust medications as needed (5) Hypothyroidism: Code(s): E03.9 - Hypothyroidism, unspecified Status: Acute Assessment and Plan: * Continue home levothyroxine * Check TSH 0.274 (6) Hyperlipidemia: Code(s): E78.5 - Hyperlipidemia, unspecified Status: Acute Assessment and Plan: * Continue home atorvastatin (7) Discharge planning issues: Code(s): Z02.9 - Encounter for administrative examinations, unspecified Status: Acute Assessment and Plan: * Patient having a hard time being placed due to trilogy needs * Pulmonary high patient to go on BiPAP * Care coordination to continue to follow * Placement is still pending * Will need Auth (8) Right arm pain: Code(s): M79.601 - Pain in right arm Status: Acute Assessment and Plan: * Patient stated that he is unable to rotate right arm * Patient reports fracture from [place] * Repeat xrays ordered * Ortho currently Subjective Date/time seen: 09/23/21 08:00 Interval history: Date/Time: 09/18/21 0
--- NOTE | 2021-09-23 08:00 | PM.IMPN ---
Progress Note: A&P Assessment and Plan (1) COPD exacerbation: Code(s): J44.1 - Chronic obstructive pulmonary disease with (acute) exacerbation Status: Acute Assessment and Plan: Wheezes better today and less Short of breath which seems to be his baseline Acute exacerbation Chronic oxygen use of 3LNC Continue home Trelegy Ellipta, singular 10mg Neb treatments PRN for shortness of breath Steroids converted 40mg PO daily, completed Azithromycin day 5, completed Chest CTA severe emphysema Pulmonary consult thank you for your help IS Sputum culture ordered Need to go home on trilogy (2) Acute on chronic respiratory failure with hypoxia and hypercapnia: Code(s): J96.21 - Acute and chronic respiratory failure with hypoxia; J96.22 - Acute and chronic respiratory failure with hypercapnia Status: Acute Assessment and Plan: Chronic O2 use of 3L at home ABG finding respiratory acidosis with PaCO2 82.4 and PaO2 65.2, pH 7.293 09/18/21 Bipap 16/10 rate of 20, will need trilogy when getting home, bipap ok for placement Dimer elevated at 2.07 Chest CTA shows no PE Pulm consult thank you for your help decrease lovenox to 40mg, changed to eliquis (3) Closed fracture of tibial plateau: Qualifiers: Encounter type: initial encounter Laterality: right Qualified Code(s): S82.141A - Displaced bicondylar fracture of right tibia, initial encounter for closed fracture Code(s): S82.143A - Displaced bicondylar fracture of unspecified tibia, initial encounter for closed fracture Status: Acute Assessment and Plan: Knee CT: nondisplaced minimally displaced comminuted fractures of the anterior aspect of the proximal tibia Ortho consulted thank you for your help Knee immobilizer non weight bearing status for 6 weeks PT/OT Eliquis for DVT Dilaudid 0.5mg IV Q4hr PRN, add Tylenol and [place] Zofran for nausea vomiting (4) Hypertension: Qualifiers: Hypertension type: unspecified Qualified Code(s): I10 - Essential (primary) hypertension Code(s): I10 - Essential (primary) hypertension Status: Acute Assessment and Plan: Current BP is 124/82 Could be high due to pain Continue home amlodipine 10mg PO daily Trend BP adjust medications as needed (5) Hypothyroidism: Code(s): E03.9 - Hypothyroidism, unspecified Status: Acute Assessment and Plan: Continue home levothyroxine Check TSH 0.274 (6) Hyperlipidemia: Code(s): E78.5 - Hyperlipidemia, unspecified Status: Acute Assessment and Plan: Continue home atorvastatin (7) Discharge planning issues: Code(s): Z02.9 - Encounter for administrative examinations, unspecified Status: Acute Assessment and Plan: Patient having a hard time being placed due to trilogy needs Pulmonary high patient to go on BiPAP Care coordination to continue to follow Placement is still pending Will need Auth (8) Right arm pain: Code(s): M79.601 - Pain in right arm Status: Acute Assessment and Plan: Patient stated that he is unable to rotate right arm Patient reports fracture from [place] Repeat xrays ordered Ortho currently Subjective Date/time seen: 09/23/21 08:00 Interval history: Date/Time: 09/18/21819 Chief Complaint: Leg fracture with limited movement Narrative: Patient is a 70 year old male with a past medical history of COPD, HTN, HLD, and BPH that presented to the ED fro evaluation of right leg pain and immobility. Patient explained that he fell 3 days ago. He was seen at [facility] which x-ray showed that he had a fracture and was told to follow up with orthopedics as an outpatient. When he tried to see an orthopedic provider, he was told that his insurance was not accepted, and they were unable to see him. He presented yesterday
[2021-09-23] MEDS: FLUTICASONE/UMECLIDIN/VILANTER 100-62.5-25 MCG ELLIPTA 1 PUFF INHALATION (08:28)
[2021-09-23] MEDS: polyethylene glycoL 3350 17 GM POWD.PACK PO (09:07)
[2021-09-23] MEDS: SENNA/DOCUSATE SODIUM TABLET 2 TAB PO ×2 (09:08→17:10)
[2021-09-23] MEDS: amLODIPine BESYLATE 5 MG TABLET 10 MG PO (09:08)
[2021-09-23] MEDS: TAMSULOSIN HCL 0.4 MG CAPSULE PO (09:08)
[2021-09-23] MEDS: ASPIRIN 81 MG CHEWABLE TABLET PO (09:08)
[2021-09-23] MEDS: APIXABAN 2.5 MG TABLET PO ×2 (09:08→21:00)
[2021-09-23] MEDS: FUROSEMIDE 40 MG TABLET PO (09:09)
[2021-09-23] MEDS: SERTRALINE HCL 50 MG TABLET PO (09:09)
--- NOTE | 2021-09-23 11:39 | PM.PNORT ---
Subjective Subjective Date/Time Seen: 09/23/21 11:39,Pt still having mild pain in knee, immobilizer is on, breathing is better, working on placement Objective Data Vital Signs Vital Signs: Vital Signs - 24 hr 09/22/21 12:00 09/22/21 12:55 09/22/21 13:02 Temperature 36.3 C L Pulse Rate 101 H 92 91 Respiratory Rate 18 20 20 Blood Pressure 133/81 Pulse Oximetry 92 09/22/21 16:00 09/22/21 16:04 09/22/21 16:10 Temperature 36.6 C Pulse Rate 93 94 96 Respiratory Rate 18 25 H 24 H Blood Pressure 152/84 H Pulse Oximetry 95 09/22/21 20:00 09/22/21 20:30 09/22/21 20:31 Temperature Pulse Rate 72 72 Respiratory Rate 22 H Blood Pressure Pulse Oximetry 94 95 09/22/21 20:45 09/22/21 21:00 09/22/21 22:05 Temperature 36.3 C L Pulse Rate 73 72 76 Respiratory Rate 20 21 H 24 H Blood Pressure 145/93 H Pulse Oximetry 98 94 09/23/21 03:41 09/23/21 03:44 09/23/21 03:46 Temperature Pulse Rate 59 L 59 L 62 Respiratory Rate 23 H 23 H 21 H Blood Pressure Pulse Oximetry 97 09/23/21 04:00 09/23/21 08:00 09/23/21 08:28 Temperature 36.3 C L 36.6 C Pulse Rate 52 L 96 89 Respiratory Rate 24 H 22 H 20 Blood Pressure 169/68 H 124/82 Pulse Oximetry 99 98 09/23/21 08:30 09/23/21 08:35 Temperature Pulse Rate 89 85 Respiratory Rate 20 20 Blood Pressure Pulse Oximetry 95 Intake/Output Intake/Output: Intake & Output 09/20/21 09/21/21 09/22/21 09/23/21 23:59 23:59 23:59 23:59 Intake Total 1860 1640 2650 660 Output Total 1500 1800 2600 1050 Balance 360 -160 50 -390 Meds/Results Medications: Active Medications Generic Name Dose Route Start Last Admin Trade Name Freq PRN Reason Stop Dose Admin Acetaminophen 1,000 mg 09/18/21 07:54 Acetaminophen 500 Mg Tablet PO Q6H PRN Mild Pain (1-3) or Fever Hydrocodone Bitart/Acetaminophen 1 tab 09/18/21 07:54 09/19/21 08:50 Hydrocodone/Acetaminophen (*Crx) 5-325 Mg Tablet PO 1 tab Q6H PRN Administration Pain Rated 4-6 Amlodipine Besylate 10 mg 09/18/21 09:00 09/23/21 09:08 Amlodipine Besylate 5 Mg Tablet PO 10 mg DAILY WILLY Administration Apixaban 2.5 mg 09/19/21 11:10 09/23/21 09:08 Apixaban 2.5 Mg Tablet PO 10/31/21 11:09 2.5 mg Q12HR WILLY Administration Aspirin 81 mg 09/18/21 08:00 09/23/21 09:08 Aspirin 81 Mg Chewable Tablet PO 81 mg DAILY@0800 WILLY Administration Atorvastatin Calcium 80 mg 09/18/21 21:00 09/22/21 20:23 Atorvastatin 40 Mg Tablet PO 80 mg HS WILLY Administration Fluticasone/Umeclidinium/Vilanterol 1 puff 09/21/21 08:00 09/23/21 08:28 Fluticasone/Umeclidin/Vilanter 100-62.5-25 Mcg Ellipta INHALATION 1 puff DAILYRT WILLY Administration Furosemide 40 mg 09/18/21 09:00 09/23/21 09:09 Furosemide 40 Mg Tablet PO 40 mg DAILY WILLY Administration Ipratropium [place] 0.5 mg 09/18/21 20:00 09/23/21 08:27 Ipratropium Br 0.02% Inh Soln 0.5 Mg/2.5 Ml Vial INHALATION 0.5 mg Q4HRT WILLY Administration Levothyroxine Sodium 150 mcg 09/18/21 09:00 09/23/21 05:42 Levothyroxine Sodium 150 Mcg Tablet PO 150 mcg DAILY@0630 WILLY Administration Montelukast Sodium 10 mg 09/18/21 21:00 09/22/21 20:23 Montelukast Sodium 10 Mg Tablet PO 10 mg HS WILLY Administration Nitroglycerin 0.4 mg 09/18/21 16:10 Nitroglycerin Sl 0.4 Mg Tablet SUBLINGUAL PRN PRN Shortness Of Breath Ondansetron HCl 4 mg 09/17/21 23:25 Ondansetron Inj 4 Mg/2 Ml Vial IV PUSH Q4H PRN Nausea Polyethylene Glycol 17 gm 09/20/21 09:00 09/23/21 09:07 Polyethylene Glycol 3350 17 Gm Powd.Pack PO 17 gm QAM WILLY Administration Senna/Docusate Sodium 2 tab 09/23/21 09:00 09/23/21 09:08 Senna/Docusate Sodium Tablet PO 2 tab BID WILLY Administration Sertraline HCl 50 mg 09/18/21 09:00 09/23/21 09:09 Sertraline Hcl 50 Mg Tablet PO 50 mg DAILY WILLY Administration Tamsulosin HCl 0.4 mg
[2021-09-23 12:37] LABS: Total Triiodothyronine (T3) 0.79 NG/ML (0.97-1.69)
[2021-09-23] MEDS: ATORVASTATIN 40 MG TABLET 80 MG PO (21:00)
[2021-09-23] MEDS: MONTELUKAST SODIUM 10 MG TABLET PO (21:01)
[2021-09-24] VITALS (23 sets, daily range): BP systolic 117–144; BP diastolic 57–83; PULSE 52–95; RESP 18–24; TEMP 36.1–36.9; O2SAT 93–98
[2021-09-24] MEDS: IPRATROPIUM BR 0.02% INH SOLN 0.5 MG/2.5 ML VIAL INHALATION ×6 (01:00→20:08)
[2021-09-24 06:55] LABS: Basophils Absolute Auto 0.1 K/mm3 (0.0-0.1); Basophils Percent Auto 0.4 % (0.2-1.2); Eosinophils Absolute Auto 0.3 K/mm3 (0-0.3); Eosinophils Percent Auto 2.1 % (0-4.4); Hematocrit 37.5 % (42.0-52.0); Hemoglobin 12.1 g/dL (14.0-18.0); Immature Granulocyte Absolute 0.22 K/mm3 (0.00-0.031); Immature Granulocyte Percent A 1.8 % (0-0.5); Lymphocytes Absolute Auto 1.44 K/mm3 (0.9-3.2); Lymphocytes Percent Auto 11.7 % (18.3-44.2); Mean Corpuscular HGB Conc 32.3 g/dl (32-36); Mean Corpuscular Hemoglobin 29.8 pg (26-34); Mean Corpuscular Volume 92.4 fl (80-100); Mean Platelet Volume 9.1 fl (7.4-10.4); Monocytes Percent Auto 7.8 % (2.6-8.5); Neutrophils Absolute Auto 9.3 K/mm3 (1.3-6.7); Neutrophils Percent Auto 76.2 % (45.5-73.1); Platelet Count Result 319 k/mm3 (150-375); Red Blood Count 4.06 M/mm3 (4.6-6.20); Red Cell Distribution Width 13.3 % (11.5-14.5); White Blood Count 12.3 K/mm3 (4.5-10.0)
[2021-09-24 07:07] LABS: Alanine Aminotransferase 20 U/L (4-50); Albumin Level 3.4 g/dL (3.5-5.1); Alkaline Phosphatase 70 U/L (38-126); Anion Gap 2 mmol/L (8-16); Aspartate Amino Transferase 21 U/L (17-59); Bilirubin,Total 0.6 mg/dL (0.2-1.3); Blood Urea Nitrogen 22 mg/dL (9-20); Calcium 8.6 mg/dL (8.4-10.2); Carbon Dioxide 39 mmol/L (22-30); Chloride 93 mmol/L (98-107); Estimated CRCL calculation 107 ml/min; Estimated Glomerular Filt Rate > 60; Glucose 95 mg/dL (65-110); Potassium 3.8 mmol/L (3.4-5.0); Sodium 134 mmol/L (137-145)
--- NOTE | 2021-09-24 07:20 | P.PNIM_ITS ---
Progress Note: A&P Assessment and Plan (1) Discharge planning issues: Code(s): Z02.9 - Encounter for administrative examinations, unspecified Status: Acute Assessment and Plan: * Patient having a hard time being placed due to trilogy needs * Pulmonary high patient to go on BiPAP * Care coordination to continue to follow * Placement is still pending, family would like a swing bed if possible according to care coordination notes * [facility] can take patient if family agrees * Insurance auth should be initiated today (2) Abdominal pain: Code(s): R10.9 - Unspecified abdominal pain Status: Acute Assessment and Plan: * Epigastric tenderness and distension * patient is passing gas is unable to burp * KUB non obstructive gas pattern * senna and MiraLax on board * reports BM yesterday 09/23/2021 (3) Closed fracture of tibial plateau: Qualifiers: Encounter type: initial encounter Laterality: right Qualified Code(s): S82.141A - Displaced bicondylar fracture of right tibia, initial encounter for closed fracture Code(s): S82.143A - Displaced bicondylar fracture of unspecified tibia, initial encounter for closed fracture Status: Acute Assessment and Plan: * Knee CT: nondisplaced minimally displaced comminuted fractures of the anterior aspect of the proximal tibia * Ortho consulted thank you for your help * Knee immobilizer * non weight bearing status for 6 weeks * PT/OT * Eliquis for DVT * Dilaudid 0.5mg IV Q4hr PRN, add Tylenol and [place] * Zofran for nausea vomiting (4) COPD exacerbation: Code(s): J44.1 - Chronic obstructive pulmonary disease with (acute) exacerbation Status: Acute Assessment and Plan: * Probably resolved at this time, therapies are completed * Wheezes better today and less Short of breath which seems to be his baseline * Acute exacerbation * Chronic oxygen use of 3LNC * Continue home Trelegy Ellipta, singular 10mg * Neb treatments PRN for shortness of breath * Steroids converted 40mg PO daily, completed * Azithromycin day 5, completed * Chest CTA severe emphysema * Pulmonary consult thank you for your help * IS * Sputum culture ordered * Need to go home on trilogy (5) Acute on chronic respiratory failure with hypoxia and hypercapnia: Code(s): J96.21 - Acute and chronic respiratory failure with hypoxia; J96.22 - Acute and chronic respiratory failure with hypercapnia Status: Acute Assessment and Plan: * Chronic O2 use of 3L at home * ABG finding respiratory acidosis with PaCO2 82.4 and PaO2 65.2, pH 7.293 09/02 05/22 * Bipap 16/10 rate of 20, will need trilogy when getting home, bipap ok for placement * Dimer elevated at 2.07 * Chest CTA shows no PE * Pulm consult thank you for your help * decrease lovenox to 40mg, changed to eliquis (6) Hypertension: Qualifiers: Hypertension type: unspecified Qualified Code(s): I10 - Essential (primary) hypertension Code(s): I10 - Essential (primary) hypertension Status: Acute Assessment and Plan: * Current BP is 144/83 * Could be high due to pain * Continue home amlodipine 10mg PO daily * Trend BP * adjust medications as needed (7) Hypothyroidism: Code(s): E03.9 - Hypothyroidism, unspecified Status: Acute Assessment and Plan: * Continue home levothyroxine * Check TSH 0.274
--- NOTE | 2021-09-24 07:20 | PM.IMPN ---
Progress Note: A&P Assessment and Plan (1) Discharge planning issues: Code(s): Z02.9 - Encounter for administrative examinations, unspecified Status: Acute Assessment and Plan: Patient having a hard time being placed due to trilogy needs Pulmonary high patient to go on BiPAP Care coordination to continue to follow Placement is still pending, family would like a swing bed if possible according to care coordination notes [facility] can take patient if family agrees Insurance auth should be initiated today (2) Abdominal pain: Code(s): R10.9 - Unspecified abdominal pain Status: Acute Assessment and Plan: Epigastric tenderness and distension patient is passing gas is unable to burp KUB non obstructive gas pattern senna and MiraLax on board reports BM yesterday 09/23/2021 (3) Closed fracture of tibial plateau: Qualifiers: Encounter type: initial encounter Laterality: right Qualified Code(s): S82.141A - Displaced bicondylar fracture of right tibia, initial encounter for closed fracture Code(s): S82.143A - Displaced bicondylar fracture of unspecified tibia, initial encounter for closed fracture Status: Acute Assessment and Plan: Knee CT: nondisplaced minimally displaced comminuted fractures of the anterior aspect of the proximal tibia Ortho consulted thank you for your help Knee immobilizer non weight bearing status for 6 weeks PT/OT Eliquis for DVT Dilaudid 0.5mg IV Q4hr PRN, add Tylenol and [place] Zofran for nausea vomiting (4) COPD exacerbation: Code(s): J44.1 - Chronic obstructive pulmonary disease with (acute) exacerbation Status: Acute Assessment and Plan: Probably resolved at this time, therapies are completed Wheezes better today and less Short of breath which seems to be his baseline Acute exacerbation Chronic oxygen use of 3LNC Continue home Trelegy Ellipta, singular 10mg Neb treatments PRN for shortness of breath Steroids converted 40mg PO daily, completed Azithromycin day 5, completed Chest CTA severe emphysema Pulmonary consult thank you for your help IS Sputum culture ordered Need to go home on trilogy (5) Acute on chronic respiratory failure with hypoxia and hypercapnia: Code(s): J96.21 - Acute and chronic respiratory failure with hypoxia; J96.22 - Acute and chronic respiratory failure with hypercapnia Status: Acute Assessment and Plan: Chronic O2 use of 3L at home ABG finding respiratory acidosis with PaCO2 82.4 and PaO2 65.2, pH 7.293 09/18/21 Bipap 16/10 rate of 20, will need trilogy when getting home, bipap ok for placement Dimer elevated at 2.07 Chest CTA shows no PE Pulm consult thank you for your help decrease lovenox to 40mg, changed to eliquis (6) Hypertension: Qualifiers: Hypertension type: unspecified Qualified Code(s): I10 - Essential (primary) hypertension Code(s): I10 - Essential (primary) hypertension Status: Acute Assessment and Plan: Current BP is 144/83 Could be high due to pain Continue home amlodipine 10mg PO daily Trend BP adjust medications as needed (7) Hypothyroidism: Code(s): E03.9 - Hypothyroidism, unspecified Status: Acute Assessment and Plan: Continue home levothyroxine Check TSH 0.274 (8) Hyperlipidemia: Code(s): E78.5 - Hyperlipidemia, unspecified Status: Acute Assessment and Plan: Continue home atorvastatin (9) Right arm pain: Code(s): M79.601 - Pain in right arm Status: Acute Assessment and Plan: Patient stated that he is unable to rotate right arm Patient reports fracture from [place] xrays do not show fracture, shows chronic ligament tear Ortho currently (10) Leukocytosis: Code(s): D72.829 - Elevated white blood cell count
[2021-09-24] MEDS: FLUTICASONE/UMECLIDIN/VILANTER 100-62.5-25 MCG ELLIPTA 1 PUFF INHALATION (08:16)
[2021-09-24] MEDS: LEVOTHYROXINE SODIUM 150 MCG TABLET PO (08:21)
[2021-09-24] MEDS: TAMSULOSIN HCL 0.4 MG CAPSULE PO (08:21)
[2021-09-24] MEDS: APIXABAN 2.5 MG TABLET PO ×2 (08:22→20:37)
[2021-09-24] MEDS: FUROSEMIDE 40 MG TABLET PO (08:22)
[2021-09-24] MEDS: ASPIRIN 81 MG CHEWABLE TABLET PO (08:22)
[2021-09-24] MEDS: polyethylene glycoL 3350 17 GM POWD.PACK PO (08:22)
[2021-09-24] MEDS: SENNA/DOCUSATE SODIUM TABLET 2 TAB PO ×2 (08:22→16:17)
[2021-09-24] MEDS: SERTRALINE HCL 50 MG TABLET PO (08:22)
[2021-09-24] MEDS: amLODIPine BESYLATE 5 MG TABLET 10 MG PO (08:22)
--- NOTE | 2021-09-24 10:15 | PCOTNOTE ---
On 09/24/21, the student, Adriana Issa, provided care and completed [facility] documentation on this patient. I have reviewed the student's documentation and agree with the findings.
[2021-09-24] MEDS: MONTELUKAST SODIUM 10 MG TABLET PO (20:37)
[2021-09-24] MEDS: ATORVASTATIN 40 MG TABLET 80 MG PO (20:38)
[2021-09-25] VITALS (22 sets, daily range): BP systolic 110–145; BP diastolic 65–76; PULSE 76–99; RESP 16–23; TEMP 35.6–37.1; O2SAT 93–98
[2021-09-25] MEDS: IPRATROPIUM BR 0.02% INH SOLN 0.5 MG/2.5 ML VIAL INHALATION ×6 (04:08→20:10)
[2021-09-25 05:55] LABS: Basophils Absolute Auto 0.1 K/mm3 (0.0-0.1); Basophils Percent Auto 0.4 % (0.2-1.2); Eosinophils Absolute Auto 0.2 K/mm3 (0-0.3); Eosinophils Percent Auto 1.6 % (0-4.4); Hematocrit 37.4 % (42.0-52.0); Hemoglobin 12.2 g/dL (14.0-18.0); Immature Granulocyte Percent A 1.3 % (0-0.5); Lymphocytes Absolute Auto 1.27 K/mm3 (0.9-3.2); Lymphocytes Percent Auto 8.2 % (18.3-44.2); Mean Corpuscular HGB Conc 32.6 g/dl (32-36); Mean Corpuscular Hemoglobin 30.5 pg (26-34); Mean Corpuscular Volume 93.5 fl (80-100); Mean Platelet Volume 9.2 fl (7.4-10.4); Monocytes Absolute Auto 1.2 K/mm3 (0.1-0.6); Monocytes Percent Auto 7.6 % (2.6-8.5); Neutrophils Absolute Auto 12.5 K/mm3 (1.3-6.7); Neutrophils Percent Auto 80.9 % (45.5-73.1); Platelet Count Result 343 k/mm3 (150-375); Red Cell Distribution Width 13.2 % (11.5-14.5); White Blood Count 15.5 K/mm3 (4.5-10.0)
[2021-09-25 06:05] LABS: Alanine Aminotransferase 19 U/L (4-50); Albumin Level 3.4 g/dL (3.5-5.1); Alkaline Phosphatase 79 U/L (38-126); Aspartate Amino Transferase 19 U/L (17-59); Bilirubin,Total 0.7 mg/dL (0.2-1.3); Blood Urea Nitrogen 22 mg/dL (9-20); Calcium 8.7 mg/dL (8.4-10.2); Carbon Dioxide > 40 mmol/L (22-30); Chloride 95 mmol/L (98-107); Estimated CRCL calculation 107 ml/min; Estimated Glomerular Filt Rate > 60; Glucose 106 mg/dL (65-110); Magnesium 2.2 mg/dL (1.6-2.3); Potassium 3.9 mmol/L (3.4-5.0); Sodium 138 mmol/L (137-145)
[2021-09-25] MEDS: LEVOTHYROXINE SODIUM 150 MCG TABLET PO (06:23)
[2021-09-25] MEDS: FUROSEMIDE 40 MG TABLET PO (08:13)
[2021-09-25] MEDS: TAMSULOSIN HCL 0.4 MG CAPSULE PO (08:13)
[2021-09-25] MEDS: SERTRALINE HCL 50 MG TABLET PO (08:13)
[2021-09-25] MEDS: ASPIRIN 81 MG CHEWABLE TABLET PO (08:14)
[2021-09-25] MEDS: APIXABAN 2.5 MG TABLET PO ×2 (08:14→20:47)
[2021-09-25] MEDS: amLODIPine BESYLATE 5 MG TABLET 10 MG PO (08:14)
[2021-09-25] MEDS: FLUTICASONE/UMECLIDIN/VILANTER 100-62.5-25 MCG ELLIPTA 1 PUFF INHALATION (09:05)
--- NOTE | 2021-09-25 10:20 | PM.IMPN ---
Progress Note: A&P Assessment and Plan (1) Discharge planning issues: Code(s): Z02.9 - Encounter for administrative examinations, unspecified Status: Acute Assessment and Plan: Patient having a hard time being placed due to trilogy needs Pulmonary ok with patient going on BiPAP Care coordination to continue to follow Placement is still pending, family would like a swing bed if possible according to care coordination notes [facility] is going to take patient Insurance auth still pending (2) Abdominal pain: Code(s): R10.9 - Unspecified abdominal pain Status: Acute Assessment and Plan: Seems to be resolved at this time Epigastric tenderness and distension patient is passing gas is unable to burp KUB non obstructive gas pattern senna and MiraLax PRN reports BM this morning 09/25/2021 (3) Closed fracture of tibial plateau: Qualifiers: Encounter type: initial encounter Laterality: right Qualified Code(s): S82.141A - Displaced bicondylar fracture of right tibia, initial encounter for closed fracture Code(s): S82.143A - Displaced bicondylar fracture of unspecified tibia, initial encounter for closed fracture Status: Acute Assessment and Plan: Knee CT: nondisplaced minimally displaced comminuted fractures of the anterior aspect of the proximal tibia Ortho consulted thank you for your help Knee immobilizer non weight bearing status for 6 weeks PT/OT Eliquis for DVT Dilaudid 0.5mg IV Q4hr PRN, add Tylenol and [place] Zofran for nausea vomiting (4) COPD exacerbation: Code(s): J44.1 - Chronic obstructive pulmonary disease with (acute) exacerbation Status: Acute Assessment and Plan: Probably resolved at this time, therapies are completed Wheezes better today and less Short of breath which seems to be his baseline Acute exacerbation Chronic oxygen use of 3LNC Continue home Trelegy Ellipta, singular 10mg Neb treatments PRN for shortness of breath Steroids converted 40mg PO daily, completed Azithromycin day 5, completed Chest CTA severe emphysema Pulmonary consult thank you for your help IS Sputum culture ordered Need to go home on trilogy (5) Acute on chronic respiratory failure with hypoxia and hypercapnia: Code(s): J96.21 - Acute and chronic respiratory failure with hypoxia; J96.22 - Acute and chronic respiratory failure with hypercapnia Status: Acute Assessment and Plan: Chronic O2 use of 3L at home ABG finding respiratory acidosis with PaCO2 82.4 and PaO2 65.2, pH 7.293 09/18/21 Bipap 16/10 rate of 20, will need trilogy when getting home, bipap ok for placement Dimer elevated at 2.07 Chest CTA shows no PE Pulm consult thank you for your help decrease lovenox to 40mg, changed to eliquis (6) Hypertension: Qualifiers: Hypertension type: unspecified Qualified Code(s): I10 - Essential (primary) hypertension Code(s): I10 - Essential (primary) hypertension Status: Acute Assessment and Plan: Current BP is 110/74 Could be high due to pain Continue home amlodipine 10mg PO daily Trend BP adjust medications as needed (7) Hypothyroidism: Code(s): E03.9 - Hypothyroidism, unspecified Status: Acute Assessment and Plan: Continue home levothyroxine Check TSH 0.274 (8) Hyperlipidemia: Code(s): E78.5 - Hyperlipidemia, unspecified Status: Acute Assessment and Plan: Continue home atorvastatin (9) Right arm pain: Code(s): M79.601 - Pain in right arm Status: Acute Assessment and Plan: Patient stated that he is unable to rotate right arm Patient reports fracture from [place] xrays do not show fracture, shows chronic ligament tear Ortho currently (10) Leukocytosis: Code(s): D72.829 - Elevated white
--- NOTE | 2021-09-25 10:20 | P.PNIM_ITS ---
Progress Note: A&P Assessment and Plan (1) Discharge planning issues: Code(s): Z02.9 - Encounter for administrative examinations, unspecified Status: Acute Assessment and Plan: * Patient having a hard time being placed due to trilogy needs * Pulmonary ok with patient going on BiPAP * Care coordination to continue to follow * Placement is still pending, family would like a swing bed if possible according to care coordination notes * [facility] is going to take patient * Insurance auth still pending (2) Abdominal pain: Code(s): R10.9 - Unspecified abdominal pain Status: Acute Assessment and Plan: * Seems to be resolved at this time * Epigastric tenderness and distension * patient is passing gas is unable to burp * KUB non obstructive gas pattern * senna and MiraLax PRN * reports BM this morning 09/25/2021 (3) Closed fracture of tibial plateau: Qualifiers: Encounter type: initial encounter Laterality: right Qualified Code(s): S82.141A - Displaced bicondylar fracture of right tibia, initial encounter for closed fracture Code(s): S82.143A - Displaced bicondylar fracture of unspecified tibia, initial encounter for closed fracture Status: Acute Assessment and Plan: * Knee CT: nondisplaced minimally displaced comminuted fractures of the anterior aspect of the proximal tibia * Ortho consulted thank you for your help * Knee immobilizer * non weight bearing status for 6 weeks * PT/OT * Eliquis for DVT * Dilaudid 0.5mg IV Q4hr PRN, add Tylenol and [place] * Zofran for nausea vomiting (4) COPD exacerbation: Code(s): J44.1 - Chronic obstructive pulmonary disease with (acute) exacerbation Status: Acute Assessment and Plan: * Probably resolved at this time, therapies are completed * Wheezes better today and less Short of breath which seems to be his baseline * Acute exacerbation * Chronic oxygen use of 3LNC * Continue home Trelegy Ellipta, singular 10mg * Neb treatments PRN for shortness of breath * Steroids converted 40mg PO daily, completed * Azithromycin day 5, completed * Chest CTA severe emphysema * Pulmonary consult thank you for your help * IS * Sputum culture ordered * Need to go home on trilogy (5) Acute on chronic respiratory failure with hypoxia and hypercapnia: Code(s): J96.21 - Acute and chronic respiratory failure with hypoxia; J96.22 - Acute and chronic respiratory failure with hypercapnia Status: Acute Assessment and Plan: * Chronic O2 use of 3L at home * ABG finding respiratory acidosis with PaCO2 82.4 and PaO2 65.2, pH 7.293 09/18/21 * Bipap 16/10 rate of 20, will need trilogy when getting home, bipap ok for placement * Dimer elevated at 2.07 * Chest CTA shows no PE * Pulm consult thank you for your help * decrease lovenox to 40mg, changed to eliquis (6) Hypertension: Qualifiers: Hypertension type: unspecified Qualified Code(s): I10 - Essential (primary) hypertension Code(s): I10 - Essential (primary) hypertension Status: Acute Assessment and Plan: * Current BP is 110/74 * Could be high due to pain * Continue home amlodipine 10mg PO daily * Trend BP * adjust medications as needed (7) Hypothyroidism: Code(s): E03.9 - Hypothyroidism, unspecified Status: Acute Assessment and Plan: * Continue home levothyroxine * Check TS
[2021-09-25 10:37] LABS: NT Pro B Type Natriuretic Pept 73 pg/mL (5-100)
[2021-09-25] MEDS: SIMETHICONE 80 MG TAB.CHEW PO ×2 (16:03→20:47)
[2021-09-25 19:13] LABS: Add Urine Microscopic? YES; Appearance Urine Clear (Clear); Bilirubin Urine Negative (Negative); Blood Urine Negative (Negative); Color Urine Yellow (Yellow); Glucose Urine UA Negative (Negative); Ketones Urine Negative (Negative); Leukocyte Esterase Ur Negative LEU/UL (Negative); Mucus Urine Rare /lpf; Nitrate Urine Negative (Negative); Protein Urine Negative (Negative); RBC Urine 0-2 /hpf (0-2); Specific Grav Ur 1.016 (1.001-1.035)
[2021-09-25] MEDS: MONTELUKAST SODIUM 10 MG TABLET PO (20:47)
[2021-09-25] MEDS: ATORVASTATIN 40 MG TABLET 80 MG PO (20:47)
[2021-09-26] VITALS (24 sets, daily range): BP systolic 125–138; BP diastolic 64–79; PULSE 66–95; RESP 16–23; TEMP 36.3–36.8; O2SAT 92–100
[2021-09-26] MEDS: IPRATROPIUM BR 0.02% INH SOLN 0.5 MG/2.5 ML VIAL INHALATION ×7 (00:14→23:40)
[2021-09-26 06:03] LABS: Basophils Percent Auto 0.2 % (0.2-1.2); Eosinophils Absolute Auto 0.2 K/mm3 (0-0.3); Eosinophils Percent Auto 1.8 % (0-4.4); Hematocrit 36.9 % (42.0-52.0); Immature Granulocyte Absolute 0.19 K/mm3 (0.00-0.031); Immature Granulocyte Percent A 1.5 % (0-0.5); Lymphocytes Absolute Auto 1.04 K/mm3 (0.9-3.2); Lymphocytes Percent Auto 8.1 % (18.3-44.2); Mean Corpuscular HGB Conc 32.5 g/dl (32-36); Mean Corpuscular Hemoglobin 30.7 pg (26-34); Mean Corpuscular Volume 94.4 fl (80-100); Mean Platelet Volume 9.1 fl (7.4-10.4); Monocytes Absolute Auto 1.1 K/mm3 (0.1-0.6); Monocytes Percent Auto 8.6 % (2.6-8.5); Neutrophils Absolute Auto 10.2 K/mm3 (1.3-6.7); Neutrophils Percent Auto 79.8 % (45.5-73.1); Platelet Count Result 296 k/mm3 (150-375); Red Blood Count 3.91 M/mm3 (4.6-6.20); Red Cell Distribution Width 13.4 % (11.5-14.5); White Blood Count 12.8 K/mm3 (4.5-10.0)
[2021-09-26 06:17] LABS: Alanine Aminotransferase 15 U/L (4-50); Albumin Level 3.2 g/dL (3.5-5.1); Alkaline Phosphatase 75 U/L (38-126); Aspartate Amino Transferase 17 U/L (17-59); Bilirubin,Total 0.7 mg/dL (0.2-1.3); Blood Urea Nitrogen 17 mg/dL (9-20); Calcium 8.6 mg/dL (8.4-10.2); Carbon Dioxide > 40 mmol/L (22-30); Chloride 95 mmol/L (98-107); Estimated CRCL calculation 121 ml/min; Estimated Glomerular Filt Rate > 60; Glucose 103 mg/dL (65-110); Magnesium 2.1 mg/dL (1.6-2.3); Sodium 137 mmol/L (137-145)
[2021-09-26] MEDS: LEVOTHYROXINE SODIUM 150 MCG TABLET PO (06:18)
[2021-09-26] MEDS: FUROSEMIDE 40 MG TABLET PO (08:19)
[2021-09-26] MEDS: ASPIRIN 81 MG CHEWABLE TABLET PO (08:19)
[2021-09-26] MEDS: amLODIPine BESYLATE 5 MG TABLET 10 MG PO (08:19)
[2021-09-26] MEDS: SERTRALINE HCL 50 MG TABLET PO (08:19)
[2021-09-26] MEDS: APIXABAN 2.5 MG TABLET PO ×2 (08:19→20:37)
[2021-09-26] MEDS: SIMETHICONE 80 MG TAB.CHEW PO ×4 (08:19→20:37)
[2021-09-26] MEDS: TAMSULOSIN HCL 0.4 MG CAPSULE PO (08:19)
[2021-09-26] MEDS: FLUTICASONE/UMECLIDIN/VILANTER 100-62.5-25 MCG ELLIPTA 1 PUFF INHALATION (08:59)
--- NOTE | 2021-09-26 09:52 | P.PNIM_ITS ---
Progress Note: A&P Assessment and Plan (1) Discharge planning issues: Code(s): Z02.9 - Encounter for administrative examinations, unspecified Status: Acute Assessment and Plan: Care coordination to continue to follow * Placement is still pending, family is agreeable to a swing bed. * [facility] has accepted the patient for acute rehabilitation. * Insurance authorization. still pending (2) Abdominal pain: Code(s): R10.9 - Unspecified abdominal pain Status: Acute Assessment and Plan: * REsolved. * Epigastric tenderness and distension, improved with simethicone. * patient is passing flatus and having bowel movements * KUB non obstructive gas pattern * senna and MiraLax PRN (3) Closed fracture of tibial plateau: Qualifiers: Encounter type: initial encounter Laterality: right Qualified Code(s): S82.141A - Displaced bicondylar fracture of right tibia, initial encounter for closed fracture Code(s): S82.143A - Displaced bicondylar fracture of unspecified tibia, initial encounter for closed fracture Status: Acute Assessment and Plan: * Knee CT: nondisplaced minimally displaced comminuted fractures of the anterior aspect of the proximal tibia * Ortho consulted: Conservative management. * Knee immobilizer * non weight bearing status for 6 weeks * PT/OT * Eliquis for DVT * Pain management: Dilaudid 0.5mg IV Q4hr PRN, add Tylenol and [place] (4) COPD exacerbation: Code(s): J44.1 - Chronic obstructive pulmonary disease with (acute) exacerbation Status: Acute Assessment and Plan: * Acute on chronic hypercarbic respiratory failure. * Baseline Chronic oxygen use of 3LNC * Continue home Trelegy Ellipta, singular 10mg * Neb treatments PRN for shortness of breath * Continue steroid taper. Steroids converted 40mg PO daily, completed * Azithromycin day 5, completed * Chest CTA severe emphysema * Pulmonary consulted. * Need to go home on trilogy * Encourage incentive spirometry. (5) Acute on chronic respiratory failure with hypoxia and hypercapnia: Code(s): J96.21 - Acute and chronic respiratory failure with hypoxia; J96.22 - Acute and chronic respiratory failure with hypercapnia Status: Acute Assessment and Plan: * Chronic O2 use of 3L at home * ABG finding respiratory acidosis with PaCO2 82.4 and PaO2 65.2, pH 7.293 09/18/21 * Bipap 16/10 rate of 20, will need trilogy when getting home, bipap ok for placement * Dimer elevated at 2.07 * Chest CTA shows no PE; of the same. * Dizzy prophylaxis: Currently on eliquis (6) Hypertension: Qualifiers: Hypertension type: unspecified Qualified Code(s): I10 - Essential (primary) hypertension Code(s): I10 - Essential (primary) hypertension Status: Acute Assessment and Plan: * Blood pressure is well controlled in the 125/60 4-136/77 range. * Continue home amlodipine 10mg PO daily * adjust medications as needed (7) Hypothyroidism: Code(s): E03.9 - Hypothyroidism, unspecified Status: Acute Assessment and Plan: * Continue home levothyroxine * Check TSH 0.274 (8) Hyperlipidemia: Code(s): E78.5 - Hyperlipidemia, unspecified Status: Acute Assessment and Plan: * Continue home atorvastatin (9) Right arm pain: Code(s): M79.601 - Pain in
--- NOTE | 2021-09-26 09:52 | PM.IMPN ---
Progress Note: A&P Assessment and Plan (1) Discharge planning issues: Code(s): Z02.9 - Encounter for administrative examinations, unspecified Status: Acute Assessment and Plan: Care coordination to continue to follow Placement is still pending, family is agreeable to a swing bed. [facility] has accepted the patient for acute rehabilitation. Insurance authorization. still pending (2) Abdominal pain: Code(s): R10.9 - Unspecified abdominal pain Status: Acute Assessment and Plan: REsolved. Epigastric tenderness and distension, improved with simethicone. patient is passing flatus and having bowel movements KUB non obstructive gas pattern senna and MiraLax PRN (3) Closed fracture of tibial plateau: Qualifiers: Encounter type: initial encounter Laterality: right Qualified Code(s): S82.141A - Displaced bicondylar fracture of right tibia, initial encounter for closed fracture Code(s): S82.143A - Displaced bicondylar fracture of unspecified tibia, initial encounter for closed fracture Status: Acute Assessment and Plan: Knee CT: nondisplaced minimally displaced comminuted fractures of the anterior aspect of the proximal tibia Ortho consulted: Conservative management. Knee immobilizer non weight bearing status for 6 weeks PT/OT Eliquis for DVT Pain management: Dilaudid 0.5mg IV Q4hr PRN, add Tylenol and [place] (4) COPD exacerbation: Code(s): J44.1 - Chronic obstructive pulmonary disease with (acute) exacerbation Status: Acute Assessment and Plan: Acute on chronic hypercarbic respiratory failure. Baseline Chronic oxygen use of 3LNC Continue home Trelegy Ellipta, singular 10mg Neb treatments PRN for shortness of breath Continue steroid taper. Steroids converted 40mg PO daily, completed Azithromycin day 5, completed Chest CTA severe emphysema Pulmonary consulted. Need to go home on trilogy Encourage incentive spirometry. (5) Acute on chronic respiratory failure with hypoxia and hypercapnia: Code(s): J96.21 - Acute and chronic respiratory failure with hypoxia; J96.22 - Acute and chronic respiratory failure with hypercapnia Status: Acute Assessment and Plan: Chronic O2 use of 3L at home ABG finding respiratory acidosis with PaCO2 82.4 and PaO2 65.2, pH 7.293 09/18/21 Bipap 16/10 rate of 20, will need trilogy when getting home, bipap ok for placement Dimer elevated at 2.07 Chest CTA shows no PE; of the same. Dizzy prophylaxis: Currently on eliquis (6) Hypertension: Qualifiers: Hypertension type: unspecified Qualified Code(s): I10 - Essential (primary) hypertension Code(s): I10 - Essential (primary) hypertension Status: Acute Assessment and Plan: Blood pressure is well controlled in the 125/60 4-136/77 range. Continue home amlodipine 10mg PO daily adjust medications as needed (7) Hypothyroidism: Code(s): E03.9 - Hypothyroidism, unspecified Status: Acute Assessment and Plan: Continue home levothyroxine Check TSH 0.274 (8) Hyperlipidemia: Code(s): E78.5 - Hyperlipidemia, unspecified Status: Acute Assessment and Plan: Continue home atorvastatin (9) Right arm pain: Code(s): M79.601 - Pain in right arm Status: Acute Assessment and Plan: Patient stated that he is unable to rotate right arm xrays do not show fracture, shows chronic ligament tear Follow-up for tore her mentation was. Continue pain management. (10) Leukocytosis: Code(s): D72.829 - Elevated white blood cell count, unspecified Status: Acute Assessment and Plan: Likely secondary to steroids. No evidence of fever or infectious source. Continue to monitor CBC. Additional Plan Patient is medically stable for dis
[2021-09-26] MEDS: HYDROcodone/acetaminophen (*CRX) 5-325 MG TABLET 1 TAB PO (13:31)
[2021-09-26] MEDS: ATORVASTATIN 40 MG TABLET 80 MG PO (20:37)
[2021-09-26] MEDS: MONTELUKAST SODIUM 10 MG TABLET PO (20:37)
[2021-09-27] VITALS (16 sets, daily range): BP systolic 121–145; BP diastolic 60–79; PULSE 72–89; RESP 16–22; TEMP 36.1–36.7; O2SAT 95–98
[2021-09-27] MEDS: IPRATROPIUM BR 0.02% INH SOLN 0.5 MG/2.5 ML VIAL INHALATION ×4 (04:29→16:21)
[2021-09-27] MEDS: LEVOTHYROXINE SODIUM 150 MCG TABLET PO (05:35)
[2021-09-27] MEDS: FLUTICASONE/UMECLIDIN/VILANTER 100-62.5-25 MCG ELLIPTA 1 PUFF INHALATION (07:51)
[2021-09-27] MEDS: SERTRALINE HCL 50 MG TABLET PO (08:18)
[2021-09-27] MEDS: amLODIPine BESYLATE 5 MG TABLET 10 MG PO (08:18)
[2021-09-27] MEDS: FUROSEMIDE 40 MG TABLET PO (08:18)
[2021-09-27] MEDS: SIMETHICONE 80 MG TAB.CHEW PO ×2 (08:18→12:18)
[2021-09-27] MEDS: ASPIRIN 81 MG CHEWABLE TABLET PO (08:18)
[2021-09-27] MEDS: APIXABAN 2.5 MG TABLET PO (08:18)
[2021-09-27] MEDS: TAMSULOSIN HCL 0.4 MG CAPSULE PO (08:18)
--- NOTE | 2021-09-27 14:49 | P.DS_ITS ---
DS: Admitting Diagnosis Discharge Date 09/27/2021. Admitting Diagnosis (1) Acute on chronic respiratory failure with hypoxia and hypercapnia: (2) Closed fracture of tibial plateau: (3) Pneumonia: (4) COPD (chronic obstructive pulmonary disease): (5) Hypertension: (6) Hypothyroidism: (7) Hyperlipidemia: DS: Discharge Diagnosis Discharge Diagnosis (1) Discharge planning issues: Code(s): Z02.9 - Encounter for administrative examinations, unspecified Status: Acute Assessment and Plan: Care coordination to continue to follow * Placement is still pending, family is agreeable to a swing bed. * [facility] the patient for acute rehabilitation. * Insurance authorization. still pending (2) Abdominal pain: Code(s): R10.9 - Unspecified abdominal pain Status: Acute Assessment and Plan: * REsolved. * Epigastric tenderness and distension, improved with simethicone. * patient is passing flatus and having bowel movements * KUB non obstructive gas pattern * senna and MiraLax PRN (3) Closed fracture of tibial plateau: Qualifiers: Encounter type: initial encounter Laterality: right Qualified Code(s): S82.141A - Displaced bicondylar fracture of right tibia, initial encounter for closed fracture Code(s): S82.143A - Displaced bicondylar fracture of unspecified tibia, initial encounter for closed fracture Status: Acute Assessment and Plan: * Knee CT: nondisplaced minimally displaced comminuted fractures of the anterior aspect of the proximal tibia * Ortho consulted: Conservative management. * Knee immobilizer * non weight bearing status for 6 weeks * PT/OT * Eliquis for DVT * Pain management: Dilaudid 0.5mg IV Q4hr PRN, add Tylenol and [place] (4) COPD exacerbation: Code(s): J44.1 - Chronic obstructive pulmonary disease with (acute) exacerbation Status: Acute Assessment and Plan: * Acute on chronic hypercarbic respiratory failure. * Baseline Chronic oxygen use of 3LNC * Continue home Trelegy Ellipta, singular 10mg * Neb treatments PRN for shortness of breath * Continue steroid taper. Steroids converted 40mg PO daily, completed * Azithromycin day 5, completed * Chest CTA severe emphysema * Pulmonary consulted. * Need to go home on trilogy * Encourage incentive spirometry. (5) Acute on chronic respiratory failure with hypoxia and hypercapnia: Code(s): J96.21 - Acute and chronic respiratory failure with hypoxia; J96.22 - Acute and chronic respiratory failure with hypercapnia Status: Acute Assessment and Plan: * Chronic O2 use of 3L at home * ABG finding respiratory acidosis with PaCO2 82.4 and PaO2 65.2, pH 7.293 09/18/21 * Bipap 16/10 rate of 20, will need trilogy when getting home, bipap ok for placement * Dimer elevated at 2.07 * Chest CTA shows no PE; of the same. * Dizzy prophylaxis: Currently on eliquis (6) Hypertension: Qualifiers: Hypertension type: unspecified Qualified Code(s): I10 - Essential (primary) hypertension Code(s): I10 - Essential (primary) hypertension Status: Acute Assessment and Plan: * Blood pressure is well controlled in the 125/60 4-136/77 range. * Continue home amlodipine 10mg PO daily * adjust medications as needed (7) Hypothyroidism: Code(s): E03.9 - Hypothyroidism, unspecified Status: Acute
--- NOTE | 2021-09-27 14:49 | PM.DS ---
DS: Admitting Diagnosis Discharge Date 09/27/2021. Admitting Diagnosis (1) Acute on chronic respiratory failure with hypoxia and hypercapnia: (2) Closed fracture of tibial plateau: (3) Pneumonia: (4) COPD (chronic obstructive pulmonary disease): (5) Hypertension: (6) Hypothyroidism: (7) Hyperlipidemia: DS: Discharge Diagnosis Discharge Diagnosis (1) Discharge planning issues: Code(s): Z02.9 - Encounter for administrative examinations, unspecified Status: Acute Assessment and Plan: Care coordination to continue to follow Placement is still pending, family is agreeable to a swing bed. [facility] has accepted the patient for acute rehabilitation. Insurance authorization. still pending (2) Abdominal pain: Code(s): R10.9 - Unspecified abdominal pain Status: Acute Assessment and Plan: REsolved. Epigastric tenderness and distension, improved with simethicone. patient is passing flatus and having bowel movements KUB non obstructive gas pattern senna and MiraLax PRN (3) Closed fracture of tibial plateau: Qualifiers: Encounter type: initial encounter Laterality: right Qualified Code(s): S82.141A - Displaced bicondylar fracture of right tibia, initial encounter for closed fracture Code(s): S82.143A - Displaced bicondylar fracture of unspecified tibia, initial encounter for closed fracture Status: Acute Assessment and Plan: Knee CT: nondisplaced minimally displaced comminuted fractures of the anterior aspect of the proximal tibia Ortho consulted: Conservative management. Knee immobilizer non weight bearing status for 6 weeks PT/OT Eliquis for DVT Pain management: Dilaudid 0.5mg IV Q4hr PRN, add Tylenol and Sontag (4) COPD exacerbation: Code(s): J44.1 - Chronic obstructive pulmonary disease with (acute) exacerbation Status: Acute Assessment and Plan: Acute on chronic hypercarbic respiratory failure. Baseline Chronic oxygen use of 3LNC Continue home Trelegy Ellipta, singular 10mg Neb treatments PRN for shortness of breath Continue steroid taper. Steroids converted 40mg PO daily, completed Azithromycin day 5, completed Chest CTA severe emphysema Pulmonary consulted. Need to go home on trilogy Encourage incentive spirometry. (5) Acute on chronic respiratory failure with hypoxia and hypercapnia: Code(s): J96.21 - Acute and chronic respiratory failure with hypoxia; J96.22 - Acute and chronic respiratory failure with hypercapnia Status: Acute Assessment and Plan: Chronic O2 use of 3L at home ABG finding respiratory acidosis with PaCO2 82.4 and PaO2 65.2, pH 7.293 09/18/21 Bipap 16/10 rate of 20, will need trilogy when getting home, bipap ok for placement Dimer elevated at 2.07 Chest CTA shows no PE; of the same. Dizzy prophylaxis: Currently on eliquis (6) Hypertension: Qualifiers: Hypertension type: unspecified Qualified Code(s): I10 - Essential (primary) hypertension Code(s): I10 - Essential (primary) hypertension Status: Acute Assessment and Plan: Blood pressure is well controlled in the 125/60 4-136/77 range. Continue home amlodipine 10mg PO daily adjust medications as needed (7) Hypothyroidism: Code(s): E03.9 - Hypothyroidism, unspecified Status: Acute Assessment and Plan: Continue home levothyroxine Check TSH 0.274 (8) Hyperlipidemia: Code(s): E78.5 - Hyperlipidemia, unspecified Status: Acute Assessment and Plan: Continue home atorvastatin (9) Right arm pain: Code(s): M79.601 - Pain in right arm Status: Acute Assessment and Plan: Patient stated that he is unable to rotate right arm xrays do not show fracture, shows chronic ligament tear Follow-up for tore her mentation was. Continue
[2021-09-27 15:17] LABS: EDCOVIDSCREEN Negative (Negative)
== END 2021-09-27 16:50 | DRG 189 ==
LOC: ANHED 22:07 → ANH3MEDSUR 09-18 00:27 → ANH2MED 09-20 20:18 → ANH3MEDSUR 09-30 10:22 → ANHIMU 09-30 10:22
PROVIDERS: Internal Medicine; Internal Medicine Pulmonary Disease; Orthopaedic Surgery; Admitting Provider Internal Medicine; Emergency Provider Emergency Medicine; Visit Provider Nurse Practitioner
DX: J96.21 Acute and chronic respiratory failure with hypoxia (principal); S82.154A Nondisplaced fracture of right tibial tuberosity, initial encounter for closed fracture; Z68.41 Body mass index [BMI] 40.0-44.9, adult; J96.22 Acute and chronic respiratory failure with hypercapnia; W19.XXXA Unspecified fall, initial encounter; M79.601 Pain in right arm; Z20.822 Contact with and (suspected) exposure to COVID-19; J43.2 Centrilobular emphysema; E66.9 Obesity, unspecified; I50.9 Heart failure, unspecified; I11.0 Hypertensive heart disease with heart failure; E78.5 Hyperlipidemia, unspecified; E03.9 Hypothyroidism, unspecified; D72.829 Elevated white blood cell count, unspecified; K59.00 Constipation, unspecified; R10.13 Epigastric pain; N40.0 Benign prostatic hyperplasia without lower urinary tract symptoms; Z79.82 Long term (current) use of aspirin; Z79.899 Other long term (current) drug therapy; Z87.891 Personal history of nicotine dependence; Z99.81 Dependence on supplemental oxygen
CPT/HCPCS: 36415; 36600; 71045; 71275; 73060; 73090; 73590; 73700; 74018; 80048; 80053; 81001; 81003; 82306; 82375; 82805; 83050; 83605; 83735; 83880; 84439; 84443; 84480; 84484; 85025; 85380; 85610; 85730; 87040; 87426; 87449; 93005; 93306; 94002; 94003; 94640; 94762; 96365; 96375; 97110; 97162; 97167; 97530; 97535; 99284; A9270; C9803; G0378; J0456; J0696; J1170; J1650; J2930; J7120; J7512; Q9967